=== PATIENT | female | born 1975 | race American Indian/Alaskan Native ===

== ENCOUNTER 2019-10-02 11:04 | Inpatient (IN) | payer OTHER ==
[~2019-10-02 11:04] MED LIST: ALBUTEROL SULF8.5 GM INH; ALLEGRA ALLERG180 MG PO; ALLER-CHLOR4 MG PO; ATENOLOL50 MG PO; AZITHROMYCIN250 MG PO; CLINDAMYCIN HC300 MG PO; LEVOTHROID50 MCG PO; LEVOTHYROXINE25 MCG PO; METFORMIN HCL750 MG PO; MOTRIN800 MG PO; NORCO 5-325 TA1 EACH PO; PRILOSEC20 MG PO; SUPERVITE EC CAP1 MG PO; TRAMADOL HCL50 MG PO
[2019-10-11] MEDS ORDERED: GLUCOPHAGE1000 MG PO ×2 (06:39→06:58)
[2019-10-11] MEDS ORDERED: LEVOTHYROXINE75 MCG PO (06:41)
[2019-10-11] MEDS ORDERED: LEVOXYL75 MCG PO (06:51)
[2019-10-11] MEDS ORDERED: METFORMIN HCL1000 MG PO (06:52)
[2019-10-11] MEDS ORDERED: KAPSPARGO SPRIN25 MG PO (06:54)
--- NOTE | 2019-10-11 18:32 | OR ---
[facility] [address], [place] [address] Signed DATE OF OPERATION: 10/11/2019 SURGEON: Roberta Griffin MD DATABASE MARKETING SPECIALIST: Dr. Eugene. PREOPERATIVE DIAGNOSES: Term , previous section, morbid obesity, chronic hypertension, gestational diabetes, metabolic syndrome. POSTOPERATIVE DIAGNOSES: Term , previous section, morbid obesity, chronic hypertension, gestational diabetes, metabolic syndrome, delivered. PROCEDURE: Repeat section, low segment transverse uterine incision. ANESTHESIA: Spinal followed by general. ESTIMATED BLOOD LOSS: 800 mL. DRAINS: Gibbs catheter as well as the KEILY dressing. INDICATIONS: The patient is a 44-year-old female, 11, para 1, SAB 9, who conceived this with IVF using her own egg. She did not have any genetic testing at all as this was refused by the patient. She is now 39 weeks. She has had a previous section and had a prolonged issue with poor wound healing, which lasted over six months. At the time of delivery, she delivered a little boy via lower segment transverse uterine incision with Apgars of 8 and 9 and weight of 9 pounds 1 ounce. He was delivered from the ROT position. The uterus, tubes, ovaries, and placenta appeared normal. Electronically Signed By: ROBERTA GRIFFIN MD 10/11/19 1832 PATIENT NAME: LOWELL CORTEZ OPERATIVE REPORT DATE OF : 79 REPORT #: [id number] PHYSICIAN: ROBERTA GRIFFIN MD PCP: ROBERTA GRIFFIN MD REPORT IS CONFIDENTIAL AND NOT TO BE RELEASED WITHOUT AUTHORIZATION [facility] [address] [place], [place] [address] Signed DESCRIPTION OF PROCEDURE: The patient was prepped and draped in the supine position. A Pfannenstiel skin incision was made at the previous scar. This was carried down using cautery. She did have multiple blood vessels in the subq which required extensive cauterization. Eventually, the fascia was reached. The knife was used to open the fascia further and the incision was extended laterally on each side. The inferior and superior fascial flaps were then created. There was quite a bit of scarring superiorly. The peritoneum was opened during this time. The incision was then extended superiorly and inferiorly. It was then also extended bluntly. Following this, the Oral retractor was placed. The uterine incision was made at the upper aspect of the peritoneal reflection. The baby was delivered with the above findings and handed off to the pediatric staff in attendance. The placenta was removed manually. Membranes were separately removed. The uterus was explored with a lap tape assuring no remaining fragments. There was initially quite a bit of atony which did resolve with IV Pitocin. The edges of the incision were identified and the uterus was closed in 2 layers using 0 Monocryl. The first layer was a running locking stitch. The 2nd was a vertical imbricating stitch. The abdomen was then irrigated and inspected and good hemostasis was noted. The retractor was removed. The peritoneum identified. ACell graft was then laid over the lower uterine segment to aid in healing. The peritoneum was then closed with a running suture of 3-0 Vicryl. Bleeding points over the muscle were controlled with cautery. The several [id number] sutures of 0 Vicryl required near the upper right aspect of the muscle and fascia to control bleeding. This area was then irrigated and inspected and appeared hemostatic. The muscles were not reapproximated. ACell powder as well as Katie was sprinkled over the muscles to aid further in healing and for hemostasis. The fascia was then closed from each angle to the midline with a running suture of 0 Vicryl. The subcu space was irrigated, inspected and bleeding points were controlled with cautery. The deep space was closed with interrupted sutures of 3-0 Vicryl. ACell powder as well as the Katie was sprinkled in the subcu space as well. The skin edges were reapproximated with interrupted sutures with 3-0 Vicryl in a more superficial way. Following this, roderick were placed to reapproximate the skin edges. Because of her prior difficulty, a KEILY dressing was then placed and the edges reinforced with OpSite. The device was turned on and there was no evidence of any leaking. Following this, the procedure was terminated. All sponge and needle counts were correct. She tolerated the procedure well and was taken to the recovery room in good condition. MD MEGAN Benz/TODDL Electronically Signed By: ROBERTA GRIFFIN MD 10/11/19 1832 PATIENT NAME: LOWELL CORTEZ OPERATIVE REPORT DATE OF : 79 REPORT #: [id number] PHYSICIAN: ROBERTA GRIFFIN MD PCP: ROBERTA GRIFFIN MD REPORT IS CONFIDENTIAL AND NOT TO BE RELEASED WITHOUT AUTHORIZATION [place] [address] Signed /[id number] cc: [facility] Dr. Eugene Copies: [facility] ~ Electronically Signed By: ROBERTA GRIFFIN MD 10/11/191831 PATIENT NAME: LOWELL CORTEZ OPERATIVE REPORT DATE OF : 79 REPORT #: [id number] PHYSICIAN: ROBERTA GRIFFIN MD PCP: ROBERTA GRIFFIN MD REPORT IS CONFIDENTIAL AND NOT TO BE RELEASED WITHOUT AUTHORIZATION
--- NOTE | 2019-10-12 09:07 | PR ---
[facility] [address] [facility] [place], [place] [address] Signed PP Progress Notes Datetime Report Generated by CPN: 10/12/2019 09:06 SUBJECTIVE: [id number] Pain: Within normal limits Nausea/Vomiting: Denies Flatus: No Vital Signs: [id number] Vital Signs: Reviewed; Within Normal Limits EXAM: [id number] Cardiovascular: Normal Respiratory: Normal Abdomen/Uterus: Abnormal Lochia: Normal Vulva/Perineum: Not Done Breasts: Not Done CVA Tenderness: Not Done Extremities: Normal Incision: Normal Progress: Not Applicable Exam Comments: Abdomen with active BS. Fundus firm, NT @ U. Dressing completely dry H/H 9.6/28.5, WBC 6.9, plat 156k IMPRESSION/PLAN/PROCEDURES: [id number] Impression: Normal progression Other Plans: Ambulate, sponge bath, increase diet, restart meds Progress Notes: Doing well overall. Signing Physician: Roberta Griffin MD Copies: ~ *Electronically Signed* 10/12/19905 ROBERTA GRIFFIN MD PATIENT NAME: LOWELL CORTEZ PROGRESS NOTE DATE OF : 79 PHYSICIAN: ROBERTA GRIFFIN MD RPT #: [id number] REPORT IS CONFIDENTIAL AND NOT TO BE RELEASED WITHOUT AUTHORIZATION
--- NOTE | 2019-10-13 08:19 | PR ---
[facility] [address] [facility] [place], [place] [address] Signed PP Progress Notes Datetime Report Generated by CPN: 10/13/2019 08:19 SUBJECTIVE: [id number] Pain: Within normal limits Nausea/Vomiting: Denies Flatus: Yes Bowel Movement: No Vital Signs: [id number] Vital Signs: Reviewed Notable Details: mild HTN EXAM: [id number] Cardiovascular: Normal Respiratory: Normal Abdomen/Uterus: Abnormal Lochia: Normal Vulva/Perineum: Not Done Breasts: Not Done CVA Tenderness: Not Done Extremities: Abnormal Incision: Normal Progress: Not Applicable Exam Comments: Abdomen with active BS. Fundus firm, NT @ U. 1+ LE edema, no calf tenderness Dressing dry IMPRESSION/PLAN/PROCEDURES: [id number] Impression: Normal progression Plan: Continue present management Other Plans: increase ambulation Procedures: None Progress Notes: Doing well overall. Will continue present management. Signing Physician: Roberta Griffin MD Copies: ~ *Electronically Signed* 10/13/19 0819 ROBERTA GRIFFIN MD PATIENT NAME: LOWELL CORTEZ PROGRESS NOTE DATE OF : 79 PHYSICIAN: ROBERTA GRIFFIN MD RPT #: [id number] REPORT IS CONFIDENTIAL AND NOT TO BE RELEASED WITHOUT AUTHORIZATION
--- NOTE | 2019-10-14 08:11 | PR ---
[facility] [address] [facility] [place], [place] [address] Signed PP Progress Notes Datetime Report Generated by CPN: 10/14/2019 08:11 SUBJECTIVE: [id number] Pain: Within normal limits Nausea/Vomiting: Denies Flatus: Yes Bowel Movement: Yes Vital Signs: [id number] Vital Signs: Reviewed Notable Details: labile with intermittent very high BPs EXAM: [id number] Cardiovascular: Not Done Respiratory: Not Done Abdomen/Uterus: Abnormal Lochia: Normal Vulva/Perineum: Not Done Breasts: Not Done CVA Tenderness: Not Done Extremities: Normal Incision: Normal Progress: Not Applicable Exam Comments: Abdomen with active BS. Fundus firm, NT @ U. Dressing dry. IMPRESSION/PLAN/PROCEDURES: [id number] Impression: Normal progression; Induced Hypertension Plan: Discharge Other Plans: Add Procardia Procedures: None Progress Notes: Doing well though BPs have been labile. Will add Procardia now. Signing Physician: Roberta Griffin MD Copies: ~ *Electronically Signed* 10/14/19 0811 ROBERTA GRIFFIN MD PATIENT NAME: LOWELL CORTEZ PROGRESS NOTE DATE OF : 79 PHYSICIAN: ROBERTA GRIFFIN MD RPT #: [id number] REPORT IS CONFIDENTIAL AND NOT TO BE RELEASED WITHOUT AUTHORIZATION
== END 2019-10-14 10:30 | disposition home or self-care (01) | DRG 787 ==
LOC: FBC 10-11 04:50
PROVIDERS: ADMIT Obstetrics & Gynecology
PROC: 10D00Z1 Extraction of Products of Conception, Low, Open Approach (ICD-10-PCS; principal; 2019-10-11 06:45)
DX: O34.211 Maternal care for low transverse scar from previous cesarean delivery (principal); O10.92 Unspecified pre-existing hypertension complicating childbirth; N85.8 Other specified noninflammatory disorders of uterus; Z3A.39 39 weeks gestation of pregnancy; Z37.0 Single live birth; O99.214 Obesity complicating childbirth; E66.01 Morbid (severe) obesity due to excess calories; O75.89 Other specified complications of labor and delivery; O32.2XX0 Maternal care for transverse and oblique lie, not applicable or unspecified; O99.284 Endocrine, nutritional and metabolic diseases complicating childbirth; E88.81 Metabolic syndrome and other insulin resistance; E28.2 Polycystic ovarian syndrome; O99.52 Diseases of the respiratory system complicating childbirth; J45.909 Unspecified asthma, uncomplicated; O24.425 Gestational diabetes mellitus in childbirth, controlled by oral hypoglycemic drugs; E03.9 Hypothyroidism, unspecified; Z79.84 Long term (current) use of oral hypoglycemic drugs; Z79.82 Long term (current) use of aspirin; Z79.51 Long term (current) use of inhaled steroids; Z79.899 Other long term (current) drug therapy; Z88.0 Allergy status to penicillin; Z88.8 Allergy status to other drugs, medicaments and biological substances
CPT/HCPCS: 01961; 36415; 85027; A9270; J0690; J1170; J1644; J2270; J2274; J2405; J2590; J2704; J3010; J7121

== ENCOUNTER 2019-10-18 19:58 | Emergency (ER) | payer OTHER ==
[~2019-10-18] VITALS: Ht 175.3 cm; Wt 147.0 kg
--- OUTSIDE RECORDS SUMMARY | ~2019-10-18 | XMS | Clinical Summary ---
Demographics + + + | Address | [address] | | | [place] [address] | + + + | Home Phone | | + + + | Preferred Language | Unknown | + + + | Marital Status | Unknown | + + + | Baptism Affiliation | Unknown | + + + | Race | Unknown | + + + | Ethnic Group | Unknown | + + + Author + + + | Author | [facility] (Historical as of | | | 02-09-19) | + + + | Organization | [facility] (Historical as of | | | 02-09-19) | + + + | Address | Unknown | + + + | Phone | Unavailable | + + + Care Team Providers + +------+ + | Care Blueprint Maker Name | Role | Phone | + +------+ + PP | Unavailable | + +------+ + Allergies Not on File Current Medications Not on file Active Problems Not on file Social History + +-------+ +--------+------+ | Tobacco Use | Types | Packs/Day | Years | Date | | | | | Used | | + +-------+ +--------+------+ | Never Assessed | | | | | + +-------+ +--------+------+ + + + | Sex Assigned at | Date Recorded | | | | + + + | Not on file | | + + + Plan of Treatment + + + + + | Health Maintenance | Due Date | Last Done | Comments | + + + + + | Vaccine: | | | | | Dtap/Tdap/Td (1 - | 6 | | | | Tdap) | | | | + + + + + | Cervical Cancer | | | | | Screening (Pap) | 7 | | | + + + + + | Vaccine: Influenza | | | | | (Season Ended) | 0 | | | + + + + + Results Not on filefrom Last 3 Months Insurance + +--------+ +------+-------+---------+ | Payer | Benefi | Subscriber | Type | Phone | Address | | | t Plan | ID | | | | | | / | | | | | | | Group | | | | | + +--------+ +------+-------+---------+ | /[employer] | YELLOW | [id number] | | | | | PLANS | [place] | | | | | + +--------+ +------+-------+---------+ + +--------+ +--------+ + + | Guarantor Name | Accoun | Relation to | Date | Phone | Billing Address | | | t Type | Patient | of | | | | | | | | | | + +--------+ +--------+ + + | LOWELL CORTEZ | Person | Self [birth year] Home: | [address] | | | [place] | | 1974 | [phone] | [place] | | | [place] | | [phone] | + +--------+ +--------+ + +"
--- OUTSIDE RECORDS SUMMARY | ~2019-10-18 | XMS | Encounter Summary ---
Demographics + + + | Address | [address] | | | [place] [address] | + + + | Home Phone | | + + + | Preferred Language | Unknown | + + + | Marital Status | Unknown | + + + | Hoahaoism Affiliation | Unknown | + + + | Race | Unknown | + + + | Ethnic Group | Unknown | + + + Author + + + | Author | [facility] | | | and [place] | + + + | Organization | [facility] | | | and [place] | + + + | Address | Unknown | + + + | Phone | Unavailable | + + + Care Team Providers + +------+ + | Care Electric Meter Repairer Apprentice Name | Role | Phone | + +------+ + PCP | Unavailable | + +------+ + Encounter Details +--------+ + + + + | Date | Type | Department | Care Team | Description | +--------+ + + + + | 01/02/ | Hospital | [facility] | | | | 1996 | Encounter | MED CTR SLEEP | | | | | | CENTER [address] | | | | | | [place] | | | | | | [address] | | | | | | [phone] | | | +--------+ + + + + Social History + +-------+ +--------+------+ | Tobacco [...] on file | | + + + + + + + | Job Start Date | Occupation | Industry | + + + + | Not on file | Not on file | Not on file | + + + + + + + + | Travel History | Travel Start | Travel End | + + + + + + | No recent travel history available. | + + documented as of this encounter Plan of Treatment Not on filedocumented as of this encounter Visit Diagnoses Not on filedocumented in this encounter"
--- OUTSIDE RECORDS SUMMARY | ~2019-10-18 | XMS | Encounter Summary ---
Demographics + + + | Address | [address] | | | [place] [address] | + + + | Home Phone | | + + + | Preferred Language | Unknown | + + + | Marital Status | Unmarried Domestic Partner | + + + | Holiness Affiliation | Unknown | + + + | Race | or | + + + | Ethnic Group | Not or | + + + Author + + + | Author | [facility] | + + + | Organization | [facility] | + + + | Address | Unknown | + + + | Phone | Unavailable | + + + Support + + +---------+ + | Name | Relationship | Address | Phone | + + +---------+ + | Van Zarina | ECON | Unknown | | + + +---------+ + Care Team Providers + +------+ + | Care Ergonomics Technician Name | Role | Phone | + +------+ + | Hood Sauceda MD | PCP | | + +------+ + Reason for Visit + + + | Reason | Comments | + + + | Lab findings, | [facility] | | teaching, guidance, | | | and counseling | | + + + Encounter Details +--------+ + + + + | Date | Type | Department | Care Team | Description | +--------+ + + + + | 01/28/ | Telephone | [facility] | Dee Dee Martinez MD | Lab findings, | | 2015 | | Fertility | [address] [place] | teaching, guidance, | | | | [facility]ants at [facility] | Mellisa Lynch [place], | and counseling ([place]) | | | | [address] | [place] [address] | | | | | [facility] | [phone] | | | | | and Healing, | | | | | | [facility] | | | | | | [place], [place] | | | | | | [address] | | | | | | [phone] | | | +--------+ + + + + Social History + +-------+ +--------+------+ | Tobacco Use | Types | Packs/Day | Years | Date | | | | | Used | | + +-------+ +--------+------+ | Never Smoker | | | | | + +-------+ +--------+------+ + + +---------+ + | Alcohol Use | Drinks/Week | oz/Week | Comments | + + +---------+ + | Not Asked | | | | + + +---------+ + + + + | Sex Assigned at [...]
--- OUTSIDE RECORDS SUMMARY | ~2019-10-18 | XMS | Encounter Summary ---
Demographics + + + | Address | [address] | | | [place] [address] | + + + | Home Phone | | + + + | Preferred Language | Unknown | + + + | Marital Status | Unknown | + + + | Hinduism Affiliation | Unknown | + + + | Race | Unknown | + + + | Ethnic Group | Unknown | + + + Author + + + | Author | [facility] | | | and [place] | + + + | Organization | [facility] | | | and [place] | + + + | Address | Unknown | + + + | Phone | Unavailable | + + + Care Team Providers + +------+ + | Care Animation Director Name | Role | Phone | + +------+ + PCP | Unavailable | + +------+ + Encounter Details +--------+ + + + + | Date | Type | Department | Care Team | Description | +--------+ + + + + | 02/16/ | Hospital | [facility] | | | | 2006 | Encounter | MED CTR EMERGENCY | | | | | | CENTER [address] | | | | | | [place] | | | | | | [address] | | | | | | [phone] | | | +--------+ + + + [...]
--- OUTSIDE RECORDS SUMMARY | ~2019-10-18 | XMS | Encounter Summary ---
Demographics + + + | Address | [address] | | | [place] [address] | + + + | Home Phone | | + + + | Preferred Language | Unknown | + + + | Marital Status | Unknown | + + + | Roman Catholic Affiliation | Unknown | + + + | Race | Unknown | + + + | Ethnic Group | Unknown | + + + Author + + + | Author | [facility] | | | and [place] | + + + | Organization | [facility] | | | and [place] | + + + | Address | Unknown | + + + | Phone | Unavailable | + + + Care Team Providers + +------+ + | Care Nail Technician Teacher Name | Role | Phone | + +------+ + PCP | Unavailable | + +------+ + Encounter Details +--------+ + + + + | Date | Type | Department | Care Team | Description | +--------+ + + + + | 01/11/ | Hospital | [facility] | | | | 2016 | Encounter | [facility]ICAL ADMINISTRATIVE TECHNIC[facility] Urgent [facility] | | | | | | [address] | | | | | | [address] | | | | | | [place] | | | | | | [address] | | | | | | [phone] | | | +--------+ + + + [...]
--- OUTSIDE RECORDS SUMMARY | ~2019-10-18 | XMS | Encounter Summary ---
Demographics + + + | Address | [address] | | | [place] [address] | + + + | Home Phone | | + + + | Preferred Language | Unknown | + + + | Marital Status | Unknown | + + + | Scientologist Affiliation | Unknown | + + + | Race | Unknown | + + + | Ethnic Group | Unknown | + + + Author + + + | Author | [facility] | | | and [place] | + + + | Organization | [facility] | | | and [place] | + + + | Address | Unknown | + + + | Phone | Unavailable | + + + Care Team Providers + +------+ + | Care Supervisor Cutting Department Name | Role | Phone | + +------+ + PCP | Unavailable | + +------+ + Encounter Details +--------+ + + + + | Date | Type | Department | Care Team | Description | +--------+ + + + + | 02/16/ | Hospital | [facility] | | | | 2006 | Encounter | MED CTR EMERGENCY | | | | | | CENTER [address] | | | | | | [place] | | | | | | [address] | | | | | | [phone] | | | +--------+ + + + [...]
--- OUTSIDE RECORDS SUMMARY | ~2019-10-18 | XMS | Encounter Summary ---
Demographics + + + | Address | [address] | | | [place] [address] | + + + | Home Phone | | + + + | Preferred Language | Unknown | + + + | Marital Status | Unmarried Domestic Partner | + + + | Temple Affiliation | Unknown | + + + | Race | or | + + + | Ethnic Group | Not or | + + + Author + + + | Author | [facility] | + + + | Organization | [facility] | + + + | Address | Unknown | + + + | Phone | Unavailable | + + + Support + + +---------+ + | Name | Relationship | Address | Phone | + + +---------+ + | Van Zarina | ECON | Unknown | | + + +---------+ + Care Team Providers + +------+ + | Care Clinique Counter Manager Name | Role | Phone | + +------+ + PCP | Unavailable | + +------+ + Encounter Details +--------+ + + + + | Date | Type | Department | Care Team | Description | +--------+ + + + + | 03/02/ | Documentati | Neurophysiology | Jeferson Walton MD | | | 2006 | on-ECX | [facility] [address] | [address] | | | | | [address] | [place], [place] | | | | | [employer] | [address] | | | | | [address] | [phone] | | | | | [place], [place] | | | | | | [address] | | | | | | [phone] | | | +--------+ + + + [...] Not on filedocumented as of this encounter Procedures + +--------+ + + + | Procedure Name | Priori | Date/Time | Associated Diagnosis | Comments | | | ty | | | | + +--------+ + + + | EEG ROUTINE | Routin | 03/02/2007 | | Results for this | | | e | | | procedure are in the | | | | | | results section. | + +--------+ + + + documented in this encounter Results EEG ROUTINE (03/02/2007) + + | Specimen | + + | | + + + + + | Narrative | Performed At | + + + | Patient Name: Leatha Mcdonald Date of : 1975 | [facility] | | Date of Test: 03/02/2007 | CARE TESTS | | Routine EEG Detail: With the patient awake, the posterior rhythm | | | contained much moderate amplitude symmetric 12 Hz activity. During | | | stage 1 sleep, there was attenuation of the posterior rhythm and some | | | generalized, symmetric slowing. Hyperventilation and photic | | | stimulation produced no significant change in the EEG. There was no | | | focal abnormality or abnormal paroxysmal activity. Impression: | | | Normal EEG with the patient awake and in stage 1 sleep. Jorgito Holden | | | Simone Sandoval Professor, Department of Neurology Clinical | | | Neurophysiology Department | | + + + + + + + + | Performing | Address | City/State/Zipcode | Phone Number | | Organization | | | | + + + + + | [facility] | [address] | [place], [place] | | | [facility], POINT OF CARE | [address] | [address] | | | TESTS | | | | + + + + + | [facility] | [address] | [place], [place] | | | TESTS | [address] | [address] | | + + + + + documented in this encounter Visit Diagnoses Not on filedocumented in this encounter"
--- OUTSIDE RECORDS SUMMARY | ~2019-10-18 | XMS | Encounter Summary ---
Demographics + + + | Address | [address] | | | [place] [address] | + + + | Home Phone | | + + + | Preferred Language | Unknown | + + + | Marital Status | Unknown | + + + | Islam Affiliation | Unknown | + + + | Race | Unknown | + + + | Ethnic Group | Unknown | + + + Author + + + | Author | [facility] | | | and [place] | + + + | Organization | [facility] | | | and [place] | + + + | Address | Unknown | + + + | Phone | Unavailable | + + + Care Team Providers + +------+ + | Care Industrial Design Intern Name | Role | Phone | + +------+ + PCP | Unavailable | + +------+ + Encounter Details +--------+ + + + + | Date | Type | Department | Care Team | Description | +--------+ + + + + | 01/06/ | Hospital | [facility] | | | | 2004 | Encounter | MED CTR XRAY [address] | | | | | [place] [address] | | | | | | [place] [address] | | | | | | [phone] | | | +--------+ + + + [...]
--- OUTSIDE RECORDS SUMMARY | ~2019-10-18 | XMS | Encounter Summary ---
Demographics + + + | Address | [address] | | | [place] [address] | + + + | Home Phone | | + + + | Preferred Language | Unknown | + + + | Marital Status | Unknown | + + + | Methodist Affiliation | Unknown | + + + | Race | Unknown | + + + | Ethnic Group | Unknown | + + + Author + + + | Author | [facility] | | | and [place] | + + + | Organization | [facility] | | | and [place] | + + + | Address | Unknown | + + + | Phone | Unavailable | + + + Care Team Providers + +------+ + | Care Cargo And Ramp Services Manager Name | Role | Phone | + +------+ + PCP | Unavailable | + +------+ + Encounter Details +--------+ + + + + | Date | Type | Department | Care Team | Description | +--------+ + + + + | 04/22/ | Hospital | [facility] | | | | 2007 | Encounter | MED CTR LABORATORY | | | | | | [address] | | | | | | [place] | | | | | | [address] | | | | | | [phone] | | | +--------+ + + + [...]
--- OUTSIDE RECORDS SUMMARY | ~2019-10-18 | XMS | Clinical Summary ---
Demographics + + + | Address | [address] | | | [place] [address] | + + + | Home Phone | | + + + | Preferred Language | Unknown | + + + | Marital Status | Unknown | + + + | Advent Affiliation | Unknown | + + + | Race | Unknown | + + + | Ethnic Group | Unknown | + + + Author + + + | Author | [facility] | | | and [facility] | + + + | Organization | [facility] | | | and [place] | + + + | Address | Unknown | + + + | Phone | Unavailable | + + + Care Team Providers + +------+ + | Care Field Handyman Name | Role | Phone | + +------+ + PCP | Unavailable | + +------+ + Allergies Not on File Medications Not on file Active Problems Not [...] recent travel history available. | + + Last Filed Vital Signs Not on file Plan of Treatment + + + + + | Health Maintenance | Due Date | Last Done | Comments | + + + + + | Vaccine: | | | | | Dtap/Tdap/Td (1 - | 8 | | | | Tdap) | | | | + + + + + | Cervical Cancer | | | | | Screening (Pap) | 7 | | | + + + + + | Vaccine: Influenza | | | | | (Season Ended) | 0 | | | + + + + + Results Not on filefrom Last 3 Months"
--- OUTSIDE RECORDS SUMMARY | ~2019-10-18 | XMS | Encounter Summary ---
Demographics + + + | Address | [address] | | | [place] [address] | + + + | Home Phone | | + + + | Preferred Language | Unknown | + + + | Marital Status | Unknown | + + + | Hoahaoism Affiliation | Unknown | + + + | Race | Unknown | + + + | Ethnic Group | Unknown | + + + Author + + + | Author | [facility] | | | and [place] | + + + | Organization | [facility] | | | and [place] | + + + | Address | Unknown | + + + | Phone | Unavailable | + + + Care Team Providers + +------+ + | Care Draw Bench Operator Helper Name | Role | Phone | + +------+ + PCP | Unavailable | + +------+ + Encounter Details +--------+ + + + + | Date | Type | Department | Care Team | Description | +--------+ + + + + | 08/30/ | Hospital | [facility] | Chris Slade | | | 2009 | Encounter | MED CTR SLEEP | MD [address] | | | | | [place] [address] | [facility] | | | | | [place] | [place] [address] | | | | | [address] | [phone] | | | | | [phone] | | | +--------+ + + + [...]
--- OUTSIDE RECORDS SUMMARY | ~2019-10-18 | XMS | Encounter Summary ---
Demographics + + + | Address | [address] | | | [place] [address] | + + + | Home Phone | | + + + | Preferred Language | Unknown | + + + | Marital Status | Unknown | + + + | Voodoo Affiliation | Unknown | + + + | Race | Unknown | + + + | Ethnic Group | Unknown | + + + Author + + + | Author | [facility] | | | and [place] | + + + | Organization | [facility] | | | and [place] | + + + | Address | Unknown | + + + | Phone | Unavailable | + + + Care Team Providers + +------+ + | Care Therapeutic Case Manager Name | Role | Phone | + +------+ + PCP | Unavailable | + +------+ + Encounter Details +--------+ + + + + | Date | Type | Department | Care Team | Description | +--------+ + + + + | 10/17/ | Hospital | [facility] | | | | 1996 | Encounter | MED CTR GENERIC OP | | | | | | CONV DEPT [address] | | | | | | [place], | | | | | | [place] [address] | | | | | | [phone] | | | +--------+ + + + [...]
--- OUTSIDE RECORDS SUMMARY | ~2019-10-18 | XMS | Encounter Summary ---
Demographics + + + | Address | [address] | | | [place] [address] | + + + | Home Phone | | + + + | Preferred Language | Unknown | + + + | Marital Status | Unmarried Domestic Partner | + + + | Moravian Affiliation | Unknown | + + + | Race | or | + + + | Ethnic Group | Not or | + + + Author + + + | Author | [facility] | + + + | Organization | [facility] | + + + | Address | Unknown | + + + | Phone | Unavailable | + + + Support + + +---------+ + | Name | Relationship | Address | Phone | + + +---------+ + | Van Zarina | ECON | Unknown | | + + +---------+ + Care Team Providers + +------+ + | Care Resistor Testing Machine Operator Name | Role | Phone | + +------+ + | Hood Sauceda MD | PCP | | + +------+ + Reason for Visit + + + | Reason | Comments | + + + | Lab findings, | | | teaching, guidance, | | | and counseling | | + + + Encounter Details +--------+ + + + + | Date | Type | Department | Care Team | Description | +--------+ + + + + | 06/04/ | Telephone | [place] | Dee Dee Martinez MD | Lab findings, | | 2015 | | Fertility | [address] | teaching, guidance, | | | | Consultants at [facility] | [address], | and counseling | | | | [address] | [place] [address] | | | | | [facility] | [phone] | | | | | and Healing, | | | | | | | | | | | | [place], [place] | | | | | | [address] | | | | | | [phone] | | | +--------+ + + + [...]
--- OUTSIDE RECORDS SUMMARY | ~2019-10-18 | XMS | Encounter Summary ---
Demographics + + + | Address | [address] | | | [place] [address] | + + + | Home Phone | | + + + | Preferred Language | Unknown | + + + | Marital Status | Unknown | + + + | Jain Affiliation | Unknown | + + + | Race | Unknown | + + + | Ethnic Group | Unknown | + + + Author + + + | Author | [facility] | | | and [place] | + + + | Organization | [facility] | | | and [place] | + + + | Address | Unknown | + + + | Phone | Unavailable | + + + Care Team Providers + +------+ + | Care Paralegal Assistant Name | Role | Phone | + +------+ + PCP | Unavailable | + +------+ + Encounter Details +--------+ + + + + | Date | Type | Department | Care Team | Description | +--------+ + + + + | 06/03/ | Hospital | [facility] | Sukhi Fermin | | | 2008 | Encounter | MED CTR LABORATORY | DO [address] | | | | | [address] | [facility] | | | | | [place] | [place] [address] | | | | | [address] | [phone] | | | | | [phone] | | | +--------+ + + + [...]
--- OUTSIDE RECORDS SUMMARY | ~2019-10-18 | XMS | Clinical Summary ---
Demographics + + + | Address | [address] | | | [place] [address] | + + + | Home Phone | | + + + | Preferred Language | Unknown | + + + | Marital Status | Unknown | + + + | Sabianist Affiliation | Unknown | + + + | Race | Unknown | + + + | Ethnic Group | Unknown | + + + Author + + + | Author | [facility] | | | [facility] | + + + | Organization | [facility] | | | and [place] | + + + | Address | Unknown | + + + | Phone | Unavailable | + + + Care Team Providers + +------+ + | Care Instrument Technician Helper Name | Role | Phone | [...]
--- OUTSIDE RECORDS SUMMARY | ~2019-10-18 | XMS | Clinical Summary ---
Demographics + + + | Address | [address] | | | [place] [address] | + + + | Home Phone | | + + + | Preferred Language | Unknown | + + + | Marital Status | Unknown | + + + | Jainism Affiliation | Unknown | + + + | Race | Unknown | + + + | Ethnic Group | Unknown | + + + Author + + + | Author | [facility] (Historical as of | | | 02-09-19) | + + + | Organization | [facility] (Historical as of | | | 02-09-19) | + + + | Address | Unknown | + + + | Phone | Unavailable | + + + Care Team Providers + +------+ + | Care Ladle Repairer Name | Role | Phone | + [...] | | | + +--------+ +------+-------+---------+ | /[facility] | YELLOW | [id number] | | | | | PLANS | [...] | Self | [birth year] Home: | [address] | | | [place] | | 1974 | [phone] | [place] | | | nando | | | [phone] | [phone] | + +--------+ +--------+ + +"
--- OUTSIDE RECORDS SUMMARY | ~2019-10-18 | XMS | Encounter Summary ---
Demographics + + + | Address | [address] | | | [place] [address] | + + + | Home Phone | | + + + | Preferred Language | Unknown | + + + | Marital Status | Unknown | + + + | Presybeterian Affiliation | Unknown | + + + | Race | Unknown | + + + | Ethnic Group | Unknown | + + + Author + + + | Author | [facility] | | | and [place] | + + + | Organization | [facility] | | | and [place] | + + + | Address | Unknown | + + + | Phone | Unavailable | + + + Care Team Providers + +------+ + | Care Baby Formula Mixer Name | Role | Phone | + +------+ + PCP | Unavailable | + +------+ + Encounter Details +--------+ + + + + | Date | Type | Department | Care Team | Description | +--------+ + + + + | 04/22/ | Hospital | [facility] | | | | 2007 | Encounter | MED CTR LABORATORY | | | | | | [address] | | | | | | [place] | | | | | | [address] | | | | | | [phone] | | | +--------+ + + + [...]
--- OUTSIDE RECORDS SUMMARY | ~2019-10-18 | XMS | Encounter Summary ---
Demographics + + + | Address | [address] | | | [place] [address] | + + + | Home Phone | | + + + | Preferred Language | Unknown | + + + | Marital Status | Unmarried Domestic Partner | + + + | Rastafarian Affiliation | Unknown | + + + | Race | or | + + + | Ethnic Group | Not or | + + + Author + + + | Author | [facility] | + + + | Organization | [facility] | + + + | Address | Unknown | + + + | Phone | Unavailable | + + + Support + + +---------+ + | Name | Relationship | Address | Phone | + + +---------+ + | Van Zarina | ECON | Unknown | | + + +---------+ + Care Team Providers + +------+ + | Care Tank Refinisher Name | Role | Phone | + +------+ + | Hood Sauceda MD | PCP | | + +------+ + Encounter Details +--------+ + + + + | Date | Type | Department | Care Team | Description | +--------+ + + + + | 01/16/ | [facility] | [place] | Kellee Hamlin, RN | RE: Lab order | | 2014 | Encounter | Fertility | [address] | | | | | Consultants at [facility] | [address] [place], | | | | | [address] | [place] [address] | | | | | [facility] | | | | | | and Healing, | | | | | | Building | | | | | | Floor [place], [place] | | | | | | [address] | | | | | | [phone] | | | +--------+ + + + [...]
--- OUTSIDE RECORDS SUMMARY | ~2019-10-18 | XMS | Encounter Summary ---
Demographics + + + | Address | [address] | | | [place] [address] | + + + | Home Phone | | + + + | Preferred Language | Unknown | + + + | Marital Status | Unmarried Domestic Partner | + + + | Lutheran Affiliation | Unknown | + + + | Race | or | + + + | Ethnic Group | Not or | + + + Author + + + | Author | [facility] | + + + | Organization | [facility] | + + + | Address | Unknown | + + + | Phone | Unavailable | + + + Support + + +---------+ + | Name | Relationship | Address | Phone | + + +---------+ + | Van Zarina | ECON | Unknown | | + + +---------+ + Care Team Providers + +------+ + | Care Career And Technology Education Teacher Name | Role | Phone | + +------+ + | Hood Sauceda MD | PCP | | + +------+ + Encounter Details +--------+ + + + + | Date | Type | Department | Care Team | Description | +--------+ + + + + | 01/27/ | Document-Sc | UNKNOWN DEPARTMENT | Unknown . | | | 2015 | anned | [address] | | | | | | [address] | | | | | | [place], [place] | | | | | | [address] | | | +--------+ + + + [...]
--- OUTSIDE RECORDS SUMMARY | ~2019-10-18 | XMS | Encounter Summary ---
Demographics + + + | Address | [address] | | | [place] [address] | + + + | Home Phone | | + + + | Preferred Language | Unknown | + + + | Marital Status | Unmarried Domestic Partner | + + + | Restorationism Affiliation | Unknown | + + + | Race | or | + + + | Ethnic Group | Not or | + + + Author + + + | Author | [facility] | + + + | Organization | [facility] | + + + | Address | Unknown | + + + | Phone | Unavailable | + + + Support + + +---------+ + | Name | Relationship | Address | Phone | + + +---------+ + | Van Zarina | ECON | Unknown | | + + +---------+ + Care Team Providers + +------+ + | Care Matrix Bath Attendant Name | Role | Phone | + [...] Rd | | | | | | [place], [place] | | | | | | [address] | | | +--------+ + + + [...]
--- OUTSIDE RECORDS SUMMARY | ~2019-10-18 | XMS | Encounter Summary ---
Demographics + + + | Address | [address] | | | [place] [address] | + + + | Home Phone | | + + + | Preferred Language | Unknown | + + + | Marital Status | Unmarried Domestic Partner | + + + | Church Affiliation | Unknown | + + + | Race | or | + + + | Ethnic Group | Not or | + + + Author + + + | Author | [facility] | + + + | Organization | [facility] | + + + | Address | Unknown | + + + | Phone | Unavailable | + + + Support + + +---------+ + | Name | Relationship | Address | Phone | + + +---------+ + | Van Zarina | ECON | Unknown | | + + +---------+ + Care Team Providers + +------+ + | Care Supervisor Doping Name | Role | Phone | + +------+ + | Hood Sauceda MD | PCP | | + +------+ + Reason for Referral Consultation (Routine) +--------+--------+ + + + + | Status | Reason | Specialty | Diagnoses / | Referred By | Referred To | | | | | Procedures | Contact | Contact | +--------+--------+ + + + + | Closed | | | Diagnoses | Dee Dee Martinez | | | | | | Encounter | MD [address] | | | | | | for | [address] | | | | | | consultation | [address] | | | | | | | Rd | | | | | | Pre-concepti | [place], [place] | | | | | | on | [address] | | | | | | counseling | Phone: | | | | | | Procedures | [phone] | | | | | | CONSULT TO | Fax: | | | | | | PERINATOLOGY | [phone] | | +--------+--------+ + + + + Reason for Visit +--------+ + | Reason | Comments | +--------+ + | Menses | | +--------+ + Encounter Details +--------+ + + + + | Date | Type | Department | Care Team | Description | +--------+ + + + + | 10/22/ | Telephone | [facility] | Dee Dee Martinez MD | [place] | | 2016 | | Fertility | [address] | | | | | Consultants at [facility] | [address] [place], | | | | | [address] | [place] [address] | | | | | [facility] | [phone] | | | | | and Healing, | | | | | | | | | | | | Floor [place], [place] | | | | | | [address] | | | | | | [phone] | | | +--------+ + + + [...] filedocumented as of this encounter Visit Diagnoses + + | Diagnosis | + + | Encounter for consultation - Primary Unspecified reason for consultation | + + documented in this encounter"
--- OUTSIDE RECORDS SUMMARY | ~2019-10-18 | XMS | Encounter Summary ---
Demographics + + + | Address | [address] | | | [place] [address] | + + + | Home Phone | | + + + | Preferred Language | Unknown | + + + | Marital Status | Unknown | + + + | Holiness Affiliation | Unknown | + + + | Race | Unknown | + + + | Ethnic Group | Unknown | + + + Author + + + | Author | [facility] | | | and [place] | + + + | Organization | [facility] | | | and [place] | + + + | Address | Unknown | + + + | Phone | Unavailable | + + + Care Team Providers + +------+ + | Care Social And Political Studies Professor Name | Role | Phone | + +------+ + PCP | Unavailable | + +------+ + Encounter Details +--------+ + + + + | Date | Type | Department | Care Team | Description | +--------+ + + + + | 04/09/ | Hospital | [facility] | | | | 2008 | Encounter | MED CTR GENERIC OP | | | | | | CONV DEPT [address] | | | | | | [place], | | | | | | [place] [address] | | | | | | [phone] | | | +--------+ + + + [...]
--- OUTSIDE RECORDS SUMMARY | ~2019-10-18 | XMS | Encounter Summary ---
Demographics + + + | Address | [address] | | | [place] [address] | + + + | Home Phone | | + + + | Preferred Language | Unknown | + + + | Marital Status | Unknown | + + + | Congregational Affiliation | Unknown | + + + | Race | Unknown | + + + | Ethnic Group | Unknown | + + + Author + + + | Author | [facility] | | | and [place] | + + + | Organization | [facility] | | | and [place] | + + + | Address | Unknown | + + + | Phone | Unavailable | + + + Care Team Providers + +------+ + | Care Rotary Planer Set Up Operator Name | Role | Phone | + +------+ + PCP | Unavailable | + +------+ + Encounter Details +--------+ + + + + | Date | Type | Department | Care Team | Description | +--------+ + + + + | 01/04/ | Hospital | [facility] | | | | 2006 | Encounter | MED CTR GENERIC OP | | | | | | CONV DEPT [address] | | | | | | [place], | | | | | | [place] [address] | | | | | | [phone] | | | +--------+ + + + [...]
--- OUTSIDE RECORDS SUMMARY | ~2019-10-18 | XMS | Encounter Summary ---
Demographics + + + | Address | [address] | | | [place] [address] | + + + | Home Phone | | + + + | Preferred Language | Unknown | + + + | Marital Status | Unmarried Domestic Partner | + + + | Synagogue Affiliation | Unknown | + + + | Race | or | + + + | Ethnic Group | Not or | + + + Author + + + | Author | [facility] | + + + | Organization | [facility] | + + + | Address | Unknown | + + + | Phone | Unavailable | + + + Support + + +---------+ + | Name | Relationship | Address | Phone | + + +---------+ + | Van Zarina | ECON | Unknown | | + + +---------+ + Care Team Providers + +------+ + | Care Neck Fitter Name | Role | Phone | + +------+ + PCP | Unavailable | + +------+ + Encounter Details +--------+ + + + + | Date | Type | Department | Care Team | Description | +--------+ + + + + | 03/06/ | Documentati | Neurology at | Jorgito Sandoval MD | | | 2006 | on | [facility] | [address] | | | | | [address] | [place], [place] | | | | | [address] [facility] | [address] | | | | | Health and Healing, | [phone] | | | | | [facility] | | | | | | floor [place], [place] | | | | | | [address] | | | | | | [phone] | | | +--------+ + + + [...]
--- OUTSIDE RECORDS SUMMARY | ~2019-10-18 | XMS | Encounter Summary ---
Demographics + + + | Address | [address] | | | [place] [address] | + + + | Home Phone | | + + + | Preferred Language | Unknown | + + + | Marital Status | Unknown | + + + | Zoroastrian Affiliation | Unknown | + + + | Race | Unknown | + + + | Ethnic Group | Unknown | + + + Author + + + | Author | [facility] | | | and [place] | + + + | Organization | [facility] | | | and [place] | + + + | Address | Unknown | + + + | Phone | Unavailable | + + + Care Team Providers + +------+ + | Care An/Ssn 2 4 Operator Name | Role | Phone | + +------+ + PCP | Unavailable | + +------+ + Encounter Details +--------+ + + + + | Date | Type | Department | Care Team | Description | +--------+ + + + + | 08/30/ | Hospital | [facility] | Chris Slade | | | 2009 | Encounter | MED CTR SLEEP | MD [address] | | | | | [place] [address] | [facility] | | | | | [place] | [place] [address] | | | | | [address] | [phone] | | | | | [phone] | | | +--------+ + + + [...]
--- OUTSIDE RECORDS SUMMARY | ~2019-10-18 | XMS | Encounter Summary ---
Demographics + + + | Address | [address] | | | [place] [address] | + + + | Home Phone | | + + + | Preferred Language | Unknown | + + + | Marital Status | Unmarried Domestic Partner | + + + | Hinduism Affiliation | Unknown | + + + | Race | or | + + + | Ethnic Group | Not or | + + + Author + + + | Author | [facility] | + + + | Organization | [facility] | + + + | Address | Unknown | + + + | Phone | Unavailable | + + + Support + + +---------+ + | Name | Relationship | Address | Phone | + + +---------+ + | Van Zarina | ECON | Unknown | | + + +---------+ + Care Team Providers + +------+ + | Care Director Of Video Analytics Name | Role | Phone | + [...] | | | | [address] | [place], [place] | | | | | [address] [facility] | [address] | | | | | Health and Healing, | [phone] | | | | | [facility] | | | | | | floor [place], [place] | | | | | | [address] | | | | | | [phone] | | | +--------+ + + + [...]
--- OUTSIDE RECORDS SUMMARY | ~2019-10-18 | XMS | Encounter Summary ---
Demographics + + + | Address | [address] | | | [place] [address] | + + + | Home Phone | | + + + | Preferred Language | Unknown | + + + | Marital Status | Unmarried Domestic Partner | + + + | Restoration Affiliation | Unknown | + + + | Race | or | + + + | Ethnic Group | Not or | + + + Author + + + | Author | [facility] | + + + | Organization | [facility] | + + + | Address | Unknown | + + + | Phone | Unavailable | + + + Support + + +---------+ + | Name | Relationship | Address | Phone | + + +---------+ + | Van Zarina | ECON | Unknown | | + + +---------+ + Care Team Providers + +------+ + | Care Material Hauler Name | Role | Phone | + +------+ + | Hood Sauceda MD | PCP | | + +------+ + Reason for Visit + + + | Reason | Comments | + + + | New patient | | | consultation | | + + + Other (Routine) +--------+--------+ + + + + | Status | Reason | Specialty | Diagnoses / | Referred By | Referred To | | | | | Procedures | Contact | Contact | +--------+--------+ + + + + | Closed | | Reproductive | | [facility] | | | | Endocrinology | | Epic Dept | [facility] | | | | /Infertility | | | [address] | | | | | | | [facility] | | | | | | | for Health | | | | | | | and Healing, | | | | | | | Building [address], | | | | | | | 10th Floor | | | | | | | [place], [place] | | | | | | | [address] | | | | | | | Phone: | | | | | | | [phone] | | | | | | | Fax: | | | | | | | [phone] | +--------+--------+ + + + + Encounter Details +--------+---------+ + + + | Date | Type | Department | Care Team | Description | +--------+---------+ + + + | 01/12/ | Office | University | Dee Dee Rojas MD | Recurrent | | 2014 | Visit | Fertility | [address] | loss without current | | | | Consultants at [facility] | [address] [place], | (Primary | | | | [address] | [place] [address] | Dx); Unspecified | | | | [facility] | [phone] | screening; | | | | and Healing, | | Congenital | | | | Building | | hypothyroidism | | | | Floor [place], [place] | | without goiter; PCOS | | | | [address] | | (polycystic ovarian | | | | [phone] | | syndrome) | +--------+---------+ + + + Social History + +-------+ [...] + + documented as of this encounter Last Filed Vital Signs + + + + + | Vital Sign | Reading | Time Taken | Comments | + + + + + | Blood Pressure | 120/71 | 01/12/2015 1:45 PM | | | | | PDT | | + + + + + | Pulse | 73 | 01/12/2015 1:45 PM | | | | | PDT | | + + + + + | Temperature | 36.8 C (98.3 F) | 01/12/2015 1:45 PM | | | | | PDT | | + + + + + | Respiratory Rate | 18 | 01/12/2015 1:45 PM | | | | | PDT | | + + + + + | Oxygen Saturation | - | - | | + + + + + | Inhaled Oxygen | - | - | | | Concentration | | | | + + + + + | Weight | 153.6 kg (338 lb 9.6 | 01/12/2015 1:45 PM | | | | oz) | PDT | | + + + + + | Height | 175.3 cm (5' 9") | 01/12/2015 1:45 PM | | | | | PDT | | + + + + + | Body Mass Index | 50 | 01/12/2015 1:45 PM | | | | | PDT | | + + + + + documented in this encounter Progress Notes Dee Dee Rojas MD - 01/12/2015 11:35 AM PDTInitial Visit: 01/12/2015 Subjective: 39 year old G 9P 1081 partnered woman with PCOS, hypothyroidism, HTN, and morbid obesity who is here to discuss fertility concerns. She has been attempting pregn kizzy for 1.5 years. Prior fertility evaluations include: 10+ cycles of Clomid 100 mg Day 3 to Day 7 over the past several years as well as one IUI c ycle Clomid 100 mg with HCG trigger and timed intercourse resulted in full term One cycle of Femara 5 mg Day 3 to Day 7, HMG 2 amps Day 8 to Day 11 Multiple Transvaginal Pelvic US in 2014 confirming follicle growth SA 10 mil per mL with 20% motility pre-wash NL pap 11/26/2014 HSG was normal prior to 2011 Hysteroscopy in 2007 showed no polyps POBHx: 1. age 26, SAB at 11 weeks. 2. SAB at 11 weeks. 3. SAB at 4 weeks. 4. SAB at 6 weeks. 5. SAB at 4 weeks. 6. SAB at 5 weeks. 7. SAB at 5 weeks. 8. SAB at 7 weeks. 9. live of healthy male, "Cecil," on 04/11/2012 via Cesarian section at 38 weeks-- baby was transverse. PGynHx: Menarche at age-- pt is unsure Cycles q 30 days, flow lasts 5-7 days which has been heavier since the of her son in 2011 (changes pads q 2 hours), endorses dysmenorrhea ("feels kind of like contractions") whi ch is moderately relieved with ibuprofen Pt was diagnosed with PCOS at age 22 and has been treated with long lasting Metformin PMHx: Hypothyroidism HTN PCOS Morbid obesity Gestational DM Insulin resistance Asthma PSHx: Colonoscopy which showed polyps Tonsillectomy Lap Band in 2008 at 315 lbs with 7 lb total weight loss FamHx: Mother has DM and HTN Two first cousins have history of Factor V and miscarriage ROS: Weight gain, even temperature. Denies hair thinning, hirsutism, galactorrhea, vasomotor sx. Normal BM. Current Medications: Metformin 750 mg twice daily, Atenolol 50 mg daily, Levothyroxine 50 m cg daily, Vitamin D3 2,000 units daily, Folic Acid 400 mcg daily, Flonase, and Fexofenadine 180 mg daily Allergies: Amoxicillin History: including Ovulatory, Tubal, Uterine, Cervical, Male factor. OVULATORY Cycle length - 30 days PCO symptoms - yes - diagnosed with PCOS at age 22 Anovulatory - no Thyroid symptoms - yes - diagnosed with hypothyroidism Prolactin - no Secondary amenorrhea - no TUBAL PID, GC, HPV - no Abnormal Pap - no Tubal surgery - no Ectopics - no Appendicitis - no Abdominal surgery - yes - Lap Band and Endometriosis symptoms - no UTERINE Anomaly history - no Surgery reports (H-scope L-scope) - no Asherman's history - no CERVICAL Cone biopsy - no MALE FACTOR Age:36 Paternity - no Surgery - no Trauma - no Medications: Proxeed plus Tobacco: no (no marijuana) Exposures: none-- wears mask at work ED: no Partner works as a diesel service journeyman. He periodically uses hot tubs/saunas. He is also borderline diabetic. ASSESSMENT: 1. Recurrent loss 2. Elevated BMI of 50 3. PCOS 4. Male factor-- 10 mil concentration and 20% motility 5. HTN 6. AMA PLAN: 1. Labs today including TSH, Thyroid Antibodies, Prolactin, Hgb A1C, Lupus Inhibitor, Type and Screen, Anticardiolipin, Factor V, Anti-B2 Glycoprotein, and MTHFR. 2. Recommended follow up with bariatric surgeon to plan for further weight loss, given the lap band only resulted in a 7-lb weight loss. Discussed goal of getting BMI below 45 for in- office egg retrieval with anesthesia. 3. We had an extensive discussion regarding the various etiologies of recurrent l oss, including uterine, endocrine, genetic, thrombophilia, autoimmune, and idiopathic. I mad e the following recommendations: - Uterine cavity assessment between cycle days 6-11 with a saline-infusion sonogram to rul e out cavitary pathology, will likely do this for pre-IVF screening - Serum testing for prolactin, lupus anticoagulant, anticardiolipin antibody, anti-B2 glyc oproten 1, Factor V Leiden, and thyroid peroxidase antibody - We discussed the option of checking parental karyotype on both partners to rule out diana nced translocation carrier status 4. Discussed having pt's partner complete FSH, estrogen, and testosterone panel then follow up with Urology for possible Clomid supplementation to boost sperm count. Advised to stop s auna/hot tub/steam room use. 5. While Leatha continues to lose weight and her follows up with urology, we discus sed possibly doing a Letrozole/IUI cycle. Femara 7.5 mg Day 3 to 7, MCS Day 13 or 14, HCG tr igger with IUI cycle pending partner's lab results and pt's weight loss. If not aft er 2-3 rounds and BMI <45 will regroup to discuss possible IVF/ICSI. 6. Encouraged pt to double Vitamin D3 dosage to 4,000 units for Vitamin D supplementation. 7. We discussed the age-related decline in ovarian reserve as well as a decline in oocyte q uality with increased frequency of chromosomal mutations which results in failure of normal fertilization, failure to implant, increased miscarriage, or aneuploid pregnancies. 8. Will need MFM consult. I am Oriana Kearney functioning as a scribe for Dr. Dee Dee Rojas. Oriana Kearney I have reviewed and verified the above scribed note of this patient's visit and made edits as appropriate. DEE DEE ROJAS MD I spent 60 minutes with the patient, over half of which was spent in counseling the patient regarding infertility, RPL documented in this encoun ter Plan of Treatment Not on filedocumented as of this encounter Results PROLACTIN, SERUM (01/12/2015 2:58 PM PDT) + + + + + + | Component | Value | Ref Range | Performed | Pathologist | | | | | At | Signature | + + + + + + | PROLACTIN | 7Comment: In , | 3 - 20 ng/mL | CHILD - | | | | Prolactin levels are | | [facility] - | | | | elevated above | | [place] | | | | non- levels: | | | | | | 4-fold during the first | | | | | | trimester 12-fold | | | | | | during the second | | | | | | trimester 20-fold | | | | | | during the third | | | | | | trimester | | | | + + + + + + + + | Specimen | + + | Blood - Blood | + + + + + + + | Performing | Address | City/State/Zipcode | Phone Number | | Organization | | | | + + + + + | [facility] | [address] | [place] [address] | | | [place] | | | | + + + + + FACTOR V GUADALUPE BLOOD (01/12/2015 2:58 PM PDT) + + + + + + | Component | Value | Ref Range | Performed | Pathologist | | | | | At | Signature | + + + + + + | FACTOR V | No Mutation | No Mutation | [facility] | | | ([facility] | | | DIAGNOSTIC | | | | | | | | | | | | LABORATORIE | | | | | | S | | + + + + + + + + | Specimen | + + | Blood - Blood | + + + + + | Narrative | Performed At | + + + | INTERPRETATION: The Factor V Leiden mutation analysis | [facility] | | shows that there is no mutation in either copy of the Factor V gene at | DI[facility]STIC | | codon 506. Please note that this assay only detects the Factor V | LABORATORIES | | R506Q point mutation (Factor V Leiden), and therefore a normal result | | | (in one or both alleles) does not rule out an abnormal Factor V | | | phenotype. These results suggest that this patient does not have | | | "Resistance to Activated Protein C." Other mutations responsible for | | | a hypercoagulable state cannot be ruled out. Thank you very much | | | for your referral. Please do not hesitate to contact us for | | | additional information as to the ramifications of this test result. | | | We look forward to assisting you again in the future. As per | | | your request, Factor V Leiden (R506Q) mutation analysis has been | | | completed. For this assay, a specific region of the Factor V gene | | | has been amplified by PCR and analyzed using a fluorescently labeled | | | sequence-specific probe. A fluorescent melting curve of the | | | hybridization kinetics of the sample and necessary controls has been | | | examined; the clinical interpretation is detailed above. In | | | population screening studies, approximately 3% of the [place] population | | | can be shown to be Factor V Leiden heterozygotes. References: | | | 1.) Stuart et al. N. Engl. J. Med(1994) 332:912-7. 2.) Yeimy et | | | tom. N. Engl. J Med(1993) 330:517-22. 3.) Marvin et al. Genetics in | | | Medicine(2001) 3:139:147. 4.) Nely Obrien & Ann. Am J. Clin | | | Path(2001) 115:439-47. This test was developed and its performance | | | characteristics determined by the [facility] | | | [facility]. It has not been cleared or approved by | | | the Food and Drug Administration. FDA approval is not required for | | | clinical use of this test, and therefore validation was done as | | | required under the requirements of the Clinical Laboratory Improvement | | | Act of 1988. The [facility] | | | Diagnostic Center is a fully licensed and/or accredited clinical | | | laboratory under CLIA, CAP, and the [facility]. Please note | | | that our lab now also offers a clinical diagnostic test to directly | | | detect a common mutation in the prothrombin gene that has been shown | | | to predispose to both elevated prothrombin levels and an increased | | | risk of venous thrombosis (Poort et al. Blood (1996) 88:0668-5957). | | | Should this patient be undergoing a hypercoagulable evaluation, a | | | prothrombin gene mutation analysis may be clinically indicated. | | | Reviewed and electronically signed by AUBREE JUAREZ MD,PhD | | | 01/20/2015 1:48 PM | | + + + + + + + + | Performing | Address | City/State/Zipcode | Phone Number | | Organization | | | | + + + + + | [facility] | [address] | [place] [address] | | | DIAGNOSTIC | [address] | | | | LABORATORIES | | | | + + + + + EMIL, BLOOD (01/12/2015 2:58 PM PDT) + + + + + + | Component | Value | Ref Range | Performed | Pathologist | | | | | At | Signature | + + + + + + | MTHFR | No Mutation | | [facility] | | | | | | DIAGNOSTIC | | | | | | | | | | | | LABORATORIE | | | | | | S | | + + + + + + + + | Specimen | + + | Blood - Blood | + + + + + | Narrative | Performed At | + + + | This case is amended to document that the molecular data has been | [facility] | | reviewed by Dr. Juarez. The diagnosis and other reported information | DIAGNOSTIC | | are unchanged. As per your request, MTHFR mutation analysis has | LABORATORIES | | been completed. For this assay, a specific region of the | | | methylenetetrahydrofolate reductase (MTHFR) gene has been amplified by | | | the polymerase chain reaction (PCR) and digested with the restriction | | | enzyme NlaIV. An NlaIV digest for the PCR product and controls has | | | been electrophoresed, the resulting fragments have been examined, and | | | the clinical interpretation is detailed above. INTERPRETATION: | | | The methylenetetrahydrofolate reductase (MTHFR) mutation analysis | | | shows that neither of the two alleles at nucleotide 677 of the MTHFR | | | gene (C677T) contains a mutation. As this assay only detects this | | | particular nucleotide substitution, a normal result (in one or both | | | alleles), does not rule out an abnormal MTHFR phenotype. As MTHFR | | | activity is required for efficient homocystine metabolism, MTHFR | | | mutations are a common cause of familial hyperhomocysteinema. | | | Hyperhomocysteinema is a well documented risk factor for both | | | arterial and venous thromboembolic vascular disease that may be | | | modulated by folic acid supplementation (1,4). The C677T mutation, | | | in particular creates a thermolabile MTHFR with reduced enzymatic | | | activity (2) that predisposes to hyperhomocysteinema. Homozygous | | | (but not heterozygous carriers of the C677T MTHFR defect may therefore | | | be at increased risk of vascular disease including coronary, | | | cerebral, peripheral, and/or venous vascular disease (3). The MTHFR | | | nucleotide C677T mutation is extremely prevalent. In a normal | | | healthy white population the distribution of MTHFR genotypes is | | | therefore: approximately 40% wild type, approximately 50% | | | heterozygotes, and approximately 10% homozygote. Elevated levels of | | | homocysteine have been found to be associated with homozygous | | | mutations at nucleotide C677T of the MTHFR gene (2,3). In | | | comparison, individuals either wild type or heterozygous for the C677T | | | MTHFR allele have not been found to have significant | | | hyperhomocysteinema. The vascular and/or thromboembolic risk | | | associated with a heterozygous MTHFR C667T mutation is therefore | | | likely to be small or negligible. It was previously hypothesized | | | that reduced enzyme activity of MTHFR led to mild hyperhomocysteinemia | | | which led to an increased risk for venous thromboembolism, coronary | | | heart disease, and recurrent loss. Recent meta-analyses | | | have disproven an association between hyperhomocysteinemia and risk | | | for coronary heart disease and between MTHFR polymorphism status and | | | risk for venous thromboembolism. There is growing evidence that | | | MTHFR polymorphism testing has minimal clinical utility and, therefore | | | should not be ordered as a part of a routine evaluation for | | | thrombophilia. Thank you very much for your referral. Please do | | | not hesitate to contact us for additional information as to the | | | ramifications of this test result. We look forward to assisting you | | | again in the future. References: 1.) DAREN Paris et al. ANNE MARIE | | | (1994) 274: 1866-6105. 2.) Leandro Anderson al. Nature Genetics (1994) | | | 10:111-113. 3.) bárbara Jay. Am.J.Hum.Genetics (1995) 58:35-41. | | | 4.) Sameera Parker. et al. N.Engl.J.Med. (1995) 334:759-762. 5.) | | | Jean-Paul. Molecular Diagnosis (1996) 2:61-68. 6.) Kailey, | | | Eric et al. Genetics in Medicine (2013) 15:2:153-156. This | | | test was developed and its performance characteristics determined by | | | the [facility]. | | | It has not been cleared or approved by the Food and Drug | | | Administration. FDA approval is not required for clinical use of | | | this test, and therefore validation was done as required under the | | | requirements of the Clinical Laboratory Improvement Act of 1988. The | | | [facility] is a | | | fully licensed and/or accredited clinical laboratory under CLIA, CAP, | | | and the [facility]. Reviewed and electronically signed by | | | AUBREE JUAREZ MD,PhD 02/16/2015 2:13 PM | | + + + + + + + + | Performing | Address | City/State/Zipcode | Phone Number | | Organization | | | | + + + + + | [facility] | [address] | [place] [address] | | | DIAGNOSTIC | [address] | | | | LABORATORIES | | | | + + + + + LUPUS INHIBITOR EVALUATION REFLEX TO APTT MIX (01/12/2015 2:58 PM PDT) + + + + + + | Component | Value | Ref Range | Performed | Pathologist | | | | | At | Signature | + + + + + + | INTERPRETAT | Negative for Lupus Like | Negative for | [facility] | | | ION (LUPI) | Inhibitor | Lupus Like | LABORATORY | | | | | Inhibitor | SERVICES, | | | | | | SPECIAL IMM | | | | | | + COAG | | + + + + + + | APTT | 27.2 | 26.0 - 36.0 sec | [facility] | | | PATIENT | | | LABORATORY | | | | | | SERVICES, | | | | | | SPECIAL IMM | | | | | | + COAG | | + + + + + + | HEXAGONAL | 1.3 | 0.0-<8.0 sec | [facility] | | | PL APTT | | | LABORATORY | | | | | | SERVICES, | | | | | | SPECIAL IMM | | | | | | + COAG | | + + + + + + | DVVT | 29.3 | 29.2 - 39.6 sec | [facility] | | | | | | LABORATORY | | | | | | SERVICES, | | | | | | SPECIAL IMM | | | | | | + COAG | | + + + + + + + + | Specimen | + + | Blood - Blood | + + + + + | Narrative | Performed At | + + + | Repeat testing of initial abnormal studies is recommended after | [facility] | | at least 12 weeks, since transient LA's (often associated with | LABORATORY | | infection or medication effect) are common and may not have the same | SERVICES, | | clinical implications or require the same treatment as chronic LA's of | SPECIAL IMM + | | extended duration. The Lupus Inhibitor panel does not include | [facility] | | serologic studies (anti-cardiolipin and anti-beta 2 glycoprotein 1) | | | which are also useful in evaluating anti-phospholipid syndrome (APS). | | | For comprehensive APS evaluation follow ISTH guidelines. | | | Standard heparin may interfere with APTT and APTT mixing studies in | | | any concentration. Standard heparin may interfere with the Hexagonal | | | PTT and DVVT if present in concentrations above 1.0 U/mL. Some low | | | molecular weight heparins may also affect the APTT and other tests. | | | Anti-thrombins such as Argatroban, Bivalirudin, and Dabigatran may | | | also affect the APTT and other tests. Coumadin may prolong DVVT test | | | results due to its effect on Factors II and X, but the DVV confirm | | | ratio (DVVC) will be normal in this situation. Prolonged DVVT with | | | an abnormal DVVC is indicative of a lupus inhibitor. DVVT | | | Reference Range change effective 2014 | | + + + + + + + + | Performing | Address | City/State/Zipcode | Phone Number | | Organization | | | | + + + + + | [facility] | [address] | [place] [address] | | | SPECIAL DERRE[facility] | [address] | | | | MIAH + NADIA | | | | + + + + + ANTICARDIOLIPIN IGG/M (01/12/2015 2:58 PM PDT) + +-------+ + + + | Component | Value | Ref Range | Performed | Pathologist | | | | | At | Signature | + +-------+ + + + | ANTICARDIOL | <4.4 | <=40.0 GPL-U/ml | [facility] | | | IPIN IGG | | | LABORATORY | | | | | | SERVICES, | | | | | | SPECIAL IMM | | | | | | + COAG | | + +-------+ + + + | ANTICARDIOL | 3.4 | <=40.0 MPL-U/ml | [facility] | | | IPIN IGM | | | LABORATORY | | | | | | SERVICES, | | | | | | SPECIAL IMM | | | | | | + COAG | | + +-------+ + + + + + | Specimen | + + | Blood - Blood | + + + + + | Narrative | Performed At | + + + | Test Unit Negative | [facility] | | Equivocal Positive Angélica Cardiolipin IgM MPL- U/ml <10 | LABORATORY | | 10-40 >40 Angélica Cardiolipin IgG GPL-U/ml | SERVICES, | | <10 10-40 >40 All positive results | SPECIAL IMM + | | should be retested on two or more occasions and at least 12 weeks | COAG | | apart to confirm persistence (J Thromb Haemost. 2006; 4:295-306). | | + + + + + + + + | Performing | Address | City/State/Zipcode | Phone Number | | Organization | | | | + + + + + | [facility] | [address] | [place] [address] | | | SERVICES, SPECIAL | [address] | | | | IMM + COAG | | | | + + + + + ANTI-B2 GLYCOPROTEIN 1 IGG/IGM (01/12/2015 2:58 PM PDT) + +-------+ + + + | Component | Value | Ref Range | Performed | Pathologist | | | | | At | Signature | + +-------+ + + + | ANTI-B2GPI | <3.8 | <=10.0 U/ml | [facility] | | | IGG | | | LABORATORY | | | | | | SERVICES, | | | | | | SPECIAL IMM | | | | | | + COAG | | + +-------+ + + + | ANTI-B2GP1 | <3.9 | <=5.6 U/ml | [facility] | | | IGM | | | LABORATORY | | | | | | SERVICES, | | | | | | SPECIAL IMM | | | | | | + COAG | | + +-------+ + + + + + | Specimen | + + | Blood - Blood | + + + + + | Narrative | Performed At | + + + | Test Unit Negative Equivocal | [facility] | | Positive Angélica B2-Glycoprotein I U/ml <7 7-10 | LABORATORY | | >10 An IgG and/or IgM result of greater than 10 U/mL on | SERVICES, | | at least two occasions and at least 12 weeks apart is suggestive of | SPECIAL IMM + | | antiphospholipid syndrome. Diagnosis should NOT be made solely on | COAG | | the basis of a single specimen. | | + + + + + + + + | Performing | Address | City/State/Zipcode | Phone Number | | Organization | | | | + + + + + | [facility] | [address] | [place] [address] | | | SERVICES, SPECIAL | [address] | | | | IMM + COAG | | | | + + + + + HEMOGLOBIN A1C, BLOOD (01/12/2015 2:58 PM PDT) + + + + + + | Component | Value | Ref Range | Performed | Pathologist | | | | | At | Signature | + + + + + + | HEMOGLOBIN | 5.4Comment: Hbg A1c | <5.7 % | [facility] | | | A1C | Interpretive | | LABORATORY | | | | Information: | | SERVICES, | | | | <5.7% - Normal | | SPECIAL IMM | | | | 5.7-6.4% - Consistent | | + COAG | | | | with pre-diabetes | | | | | | >6.4% - Consistent with | | | | | | diabetes | | | | + + + + + + + + | Specimen | + + | Blood - Blood | + + + + + + + | Performing | Address | City/State/Zipcode | Phone Number | | Organization | | | | + + + + + | [facility] | [address] | [place] [address] | | | SERVICES, SPECIAL | [address] | | | | IMM + COAG | | | | + + + + + THYROID PEROXIDASE AB, SERUM (01/12/2015 2:58 PM PDT) + + + + + + | Component | Value | Ref Range | Performed | Pathologist | | | | | At | Signature | + + + + + + | THYROID | 2.6Comment: Performed by | 0.0 - 9.0 IU/mL | [facility] | | | PEROXIDASE | [facility] | [address] | | | AB | [address], [facility] [place] | | [facility] | | | | [address] | | | | | | [phone] | | | | | | Fede mcelroy, | | | | | | , Lab. Director | | | | + + + + + + + + | Specimen | + + | Blood - Blood | + + + + + + + | Performing | Address | City/State/Zipcode | Phone Number | | Organization | | | | + + + + + | [facility] | [address] | [place], [place] | | | UNIV PTH - INT[facility] | | [address] | | + + + + + THYROGLOBULIN AB, SERUM (01/12/2015 2:58 PM PDT) + + + + + + | Component | Value | Ref Range | Performed | Pathologist | | | | | At | Signature | + + + + + + | THYROGLOBUL | <0.9Comment: | 0.0 - 4.0 IU/mL | [facility] | | | IN ANTIBODY | INTERPRETIVE | | REG UNIV | | | | INFORMATION: | | PTH - [facility] | | | | Thyroglobulin Antibody | | | | | | | | | | | | A | | | | | | value of 4.0 IU/mL or | | | | | | less indicates a | | | | | | negative result for | | | | | | thyroglobulin | | | | | | antibodies. The | | | | | | Thyroglobulin Antibody | | | | | | assay is being performed | | | | | | using the Gautam | | | | | | Andrew Access DxI | | | | | | method.Performed by [facility] | | | | | | [facility],[address] | | | | | | [address], [facility] [place] | | | | | | [address] | | | | | | [phone]. | | | | | | Fede mcelroy, | | | | | | MD Lab. Director | | | | + + + + + + + + | Specimen | + + | Blood - Blood | + + + + + + + | Performing | Address | City/State/Zipcode | Phone Number | | Organization | | | | + + + + + | [facility] | [address] | [place], [place] | | | UNIV PTH - [facility] | | [address] | | + + + + + TSH (01/12/2015 2:58 PM PDT) + +-------+ + + + | Component | Value | Ref Range | Performed | Pathologist | | | | | At | Signature | + +-------+ + + + | TSH | 1.92 | 0.39 - 4.17 | [facility] | | | | | mIU/L | LABORATORY | | | | | | SERVICES, | | | | | | CORE | | + +-------+ + + + + + | Specimen | + + | Blood - Blood | + + + + + | Narrative | Performed At | + + + | TSH reference ranges are influenced by a variety of environmental | [facility] | | influences, age, gender and ethnicity. The supplied reference limits | LABORATORY | | are based on published values utilizing a similar TSH assay, and | SERVICES, CORE | | should be interpreted with caution. | | + + + + + + + + | Performing | Address | City/State/Zipcode | Phone Number | | Organization | | | | + + + + + | [facility] | [address] | [place] [address] | | | SERVICES, CORE | [address] | | | + + + + + documented in this encounter Visit Diagnoses + + | Diagnosis | + + | Recurrent loss without current - Primary | + + | Unspecified screening | + + | Congenital hypothyroidism without goiter Congenital hypothyroidism | + + | PCOS (polycystic ovarian syndrome) Polycystic ovaries | + + documented in this encounter
--- OUTSIDE RECORDS SUMMARY | ~2019-10-18 | XMS | Encounter Summary ---
Demographics + + + | Address | [address] | | | [place] [address] | + + + | Home Phone | | + + + | Preferred Language | Unknown | + + + | Marital Status | Unmarried Domestic Partner | + + + | Jain Affiliation | Unknown | + + + | Race | or | + + + | Ethnic Group | Not or | + + + Author + + + | Author | [facility] | + + + | Organization | [facility] | + + + | Address | Unknown | + + + | Phone | Unavailable | + + + Support + + +---------+ + | Name | Relationship | Address | Phone | + + +---------+ + | Van Zarina | ECON | Unknown | | + + +---------+ + Care Team Providers + +------+ + | Care Radio Machinist Name | Role | Phone | + [...] + + | 06/04/ | Telephone | [place] | Dee Dee Martinez MD | Lab findings, | | 2015 | | Fertility | [address] | teaching, guidance, | | | | Consultants at [facility] | [address] [place], | and counseling | | | | [address] | [place] [address] | | | | | [facility] | [phone] | | | | | and Healing, | | | | | | | | | | | | [place], [place] | | | | | | [address] | | | | | | [phone] | | | +--------+ + + + [...]
--- OUTSIDE RECORDS SUMMARY | ~2019-10-18 | XMS | Encounter Summary ---
Demographics + + + | Address | [address] | | | [place] [address] | + + + | Home Phone | | + + + | Preferred Language | Unknown | + + + | Marital Status | Unknown | + + + | Scientology Affiliation | Unknown | + + + | Race | Unknown | + + + | Ethnic Group | Unknown | + + + Author + + + | Author | [facility] | | | and [place] | + + + | Organization | [facility] | | | and [place] | + + + | Address | Unknown | + + + | Phone | Unavailable | + + + Care Team Providers + +------+ + | Care Technical Support Representative Name | Role | Phone | + +------+ + PCP | Unavailable | + +------+ + Encounter Details +--------+ + + + + | Date | Type | Department | Care Team | Description | +--------+ + + + + | 02/16/ | Hospital | [facility] | | | | 1994 | Encounter | MED CTR GENERIC OP | | | | | | CONV DEPT [address] | | | | | | [place], | | | | | | [place] [address] | | | | | | [phone] | | | +--------+ + + + [...]
--- OUTSIDE RECORDS SUMMARY | ~2019-10-18 | XMS | Clinical Summary ---
Demographics + + + | Address | [address] | | | [place] [address] | + + + | Home Phone | | + + + | Preferred Language | Unknown | + + + | Marital Status | Unmarried Domestic Partner | + + + | Gnosticism Affiliation | Unknown | + + + | Race | or | + + + | Ethnic Group | Not or | + + + Author + + + | Author | [facility] | + + + | Organization | NON REVENUE LOCATIONS | + + + | Address | Unknown | + + + | Phone | Unavailable | + + + Support + + +---------+ + | Name | Relationship | Address | Phone | + + +---------+ + | Van Soweny | ECON | Unknown | | + + +---------+ + Care Team Providers + +------+ + | Care Sales Promotion Representative Name | Role | Phone | + +------+ + | Hood Sauceda MD | PCP | | + +------+ + Source Comments CECILY is fully live on both EpicCare Ambulatory and EpicCare InPatient.[facility] Allergies + + + + + + | Active Allergy | Reactions | Severity | Noted | Comments | | | | | Date | | + + + + + + | Amoxicillin | Rash | Medium | 01/13/20 | | | | | | 15 | | + + + + + + Medications + + + +---------+------+------+-------+ | Medication | Sig | Dispensed | Refills | Star | End | Statu | | | | | | t | Date | s | | | | | | Date | | | + + + +---------+------+------+-------+ | letrozole 2.5 mg | Take 3 tablets by | 15 | 0 | 07/2 | | Activ | | oral tablet | mouth once daily. | tablet | | 02/12 | | e | | | Administer on cycle | | | 15 | | | | | days 3-7 after a | | | | | | | | negative | | | | | | | | test | | | | | | + + + +---------+------+------+-------+ Active Problems Not on file Social History [...] | + + Last Filed Vital Signs + + + [...] | | + + + + + Plan of Treatment + + + + + | Health Maintenance | Due Date | Last Done | Comments | + + + + + | Pneumococcal | | | | | vaccination ( 3 | 3 | | | | - PCV13) | | | | + + + + + | Influenza (Flu) | | | | | vaccination (#1) | 9 | | | + + + + + Results Not on filefrom Last 3 Months Insurance + +--------+ +--------+ + +--------+ | Payer | Benefi | Subscriber | Effect | Phone | Address | Type | | | t Plan | ID | catherine | | | | | | / | | Dates | | | | | | Group | | | | | | + +--------+ +--------+ + +--------+ | [place] | OHP | [id number] | | [phone] | [address] | | | PLUS | | [phone] | id | | | OPEN | | esent | | [place], [place] | | | | CARD | | | | [phone] | | + +--------+ +--------+ + +--------+ + +--------+ +--------+ + + | Guarantor Name | Accoun | Relation to | Date | Phone | Billing Address | | | t Type | Patient | of | | | | | | | | | | + +--------+ +--------+ + + | Leatha Mcdonald | Person | Self | [birth year] | [address] | | | al/Fam | | 1974 | [address] | [place] | | | nando | | | 9 (Home) | [address] | + +--------+ +--------+ + + | Leatha Mcdonald | UFC | Self | [birth year] | [address] | | | Billin | | 1974 | | [place], [place] | | | g Use | | | 9 (Home) | [address] | | | Only | | | | | + +--------+ +--------+ + +
--- OUTSIDE RECORDS SUMMARY | ~2019-10-18 | XMS | Encounter Summary ---
Demographics + + + | Address | [address] | | | [place] [address] | + + + | Home Phone [...] + + + | Author | [facility] | + + + | Organization | [facility] | + + + | Address | Unknown | + + + | Phone | Unavailable | + + + Support + + +---------+ + | Name | Relationship | Address | Phone | + + +---------+ + | Van Zarina | ECON | Unknown | | + + +---------+ + Care Team Providers + +------+ + | Care News Production Assistant Name | Role | Phone | [...] + + | 01/28/ | Telephone | [place] | Dee Dee Martinez MD | Lab findings, | | 2015 | | Fertility | [address] | teaching, guidance, | | | | Consultants at [facility] | [address] [place], | and counseling ([place]) | | | | [address] | [place] [address] | | | | | [facility] | [phone] | | | | | and Healing, | | | | | | [facility] | | | | | | [place], [place] | | | | | | [address] | | | | | | [phone] | | | +--------+ + + + [...]
--- OUTSIDE RECORDS SUMMARY | ~2019-10-18 | XMS | Encounter Summary ---
Demographics + + + | Address | [address] | | | [place] [address] | + + + | Home Phone | | + + + | Preferred Language | Unknown | + + + | Marital Status | Unknown | + + + | Denominational Affiliation | Unknown | + + + | Race | Unknown | + + + | Ethnic Group | Unknown | + + + Author + + + | Author | [facility] | | | and [place] | + + + | Organization | [facility] | | | and [place] | + + + | Address | Unknown | + + + | Phone | Unavailable | + + + Care Team Providers + +------+ + | Care Beamster Name | Role | Phone | + +------+ + PCP | Unavailable | + +------+ + Encounter Details +--------+ + + + + | Date | Type | Department | Care Team | Description | +--------+ + + + + | 01/06/ | Hospital | [facility] | | | | 2004 | Encounter | MED CTR XRAY [address] | | | | | | [address] | | | | | | [place] [address] | | | | | | [phone] | | | +--------+ + + + [...]
--- OUTSIDE RECORDS SUMMARY | ~2019-10-18 | XMS | Encounter Summary ---
Demographics + + + | Address | [address] | | | [place] [address] | + + + | Home Phone | | + + + | Preferred Language | Unknown | + + + | Marital Status | Unknown | + + + | Jain Affiliation | Unknown | + + + | Race | Unknown | + + + | Ethnic Group | Unknown | + + + Author + + + | Author | [facility] | | | and [place] | + + + | Organization | [facility] | | | and [place] | + + + | Address | Unknown | + + + | Phone | Unavailable | + + + Care Team Providers + +------+ + | Care Dot Net Developer Name | Role | Phone | + +------+ + PCP | Unavailable | + +------+ + Encounter Details +--------+ + + + + | Date | Type | Department | Care Team | Description | +--------+ + + + + | 10/17/ | Hospital | [facility] | | | | 1996 | Encounter | MED CTR GENERIC OP | | | | | | CONV DEPT [address] | | | | | | [place], | | | | | | [place] [address] | | | | | | [phone] | | | +--------+ + + + [...]
--- OUTSIDE RECORDS SUMMARY | ~2019-10-18 | XMS | Encounter Summary ---
Demographics + + + | Address | [address] | | | [place] [address] | + + + | Home Phone | | + + + | Preferred Language | Unknown | + + + | Marital Status | Unknown | + + + | Episcopal Affiliation | Unknown | + + + | Race | Unknown | + + + | Ethnic Group | Unknown | + + + Author + + + | Author | [facility] | | | and [place] | + + + | Organization | [facility] | | | and [place] | + + + | Address | Unknown | + + + | Phone | Unavailable | + + + Care Team Providers + +------+ + | Care Mercerizer Machine Operator Name | Role | Phone | + +------+ + PCP | Unavailable | + +------+ + Encounter Details +--------+ + + + + | Date | Type | Department | Care Team | Description | +--------+ + + + + | 01/04/ | Hospital | [facility] | | | | 2006 | Encounter | MED CTR GENERIC OP | | | | | | CONV DEPT [address] | | | | | | [place], | | | | | | [place] [address] | | | | | | [phone] | | | +--------+ + + + [...]
--- OUTSIDE RECORDS SUMMARY | ~2019-10-18 | XMS | Encounter Summary ---
Demographics + + + | Address | [address] | | | [place] [address] | + + + | Home Phone | | + + + | Preferred Language | Unknown | + + + | Marital Status | Unknown | + + + | Caodaism Affiliation | Unknown | + + + | Race | Unknown | + + + | Ethnic Group | Unknown | + + + Author + + + | Author | [facility] | | | and [place] | + + + | Organization | [facility] | | | and [place] | + + + | Address | Unknown | + + + | Phone | Unavailable | + + + Care Team Providers + +------+ + | Care Inspector Clip On Sunglasses Name | Role | Phone | + +------+ + PCP | Unavailable | + +------+ + Encounter Details +--------+ + + + + | Date | Type | Department | Care Team | Description | +--------+ + + + + | 02/16/ | Hospital | [facility] | | | | 1994 | Encounter | MED CTR GENERIC OP | | | | | | CONV DEPT [address] | | | | | | [place], | | | | | | [place] [address] | | | | | | [phone] | | | +--------+ + + + [...]
--- OUTSIDE RECORDS SUMMARY | ~2019-10-18 | XMS | Encounter Summary ---
Demographics + + + | Address | [address] | | | [place] [address] | + + + | Home Phone | | + + + | Preferred Language | Unknown | + + + | Marital Status | Unknown | + + + | Tenriism Affiliation | Unknown | + + + | Race | Unknown | + + + | Ethnic Group | Unknown | + + + Author + + + | Author | [facility] | | | and [place] | + + + | Organization | [facility] | | | and [place] | + + + | Address | Unknown | + + + | Phone | Unavailable | + + + Care Team Providers + +------+ + | Care County Surveyor Name | Role | Phone | + +------+ + PCP | Unavailable | + +------+ + Encounter Details +--------+ + + + + | Date | Type | Department | Care Team | Description | +--------+ + + + + | 06/03/ | Hospital | [facility] | Sukhi Fermin | | | 2008 | Encounter | MED CTR LABORATORY | DO [address] | | | | | [address] [place] | [facility] | | | | | [place] | [place] [address] | | | | | [address] | [phone] | | | | | [phone] | | | +--------+ + + + [...]
--- OUTSIDE RECORDS SUMMARY | ~2019-10-18 | XMS | Encounter Summary ---
Demographics + + + | Address | [address] | | | [place] [address] | + + + | Home Phone | | + + + | Preferred Language | Unknown | + + + | Marital Status | Unmarried Domestic Partner | + + + | Jewish Affiliation | Unknown | + + + | Race | or | + + + | Ethnic Group | Not or | + + + Author + + + | Author | [facility] | + + + | Organization | [facility] | + + + | Address | Unknown | + + + | Phone | Unavailable | + + + Support + + +---------+ + | Name | Relationship | Address | Phone | + + +---------+ + | Van Zarina | ECON | Unknown | | + + +---------+ + Care Team Providers + +------+ + | Care Press Pipe Inspector Name | Role | Phone | + [...] | | | Encounter | [address] | | | | | | for | [address] | | | | | | consultation | [address] | | | | | | | Rd | | | | | | Pre-concepti | [place], [place] | | | | | | on | [address] | | | | | | counseling | Phone: | | | | | | Procedures | [phone] | | | | | | CONSULT TO | Fax: | | | | | | PERINATOLOGY | [phone] | | +--------+--------+ + + + + [...] | | | | | Consultants at [facility] | [address] [place], | | | | | [address] | [place] [address] | | | | | [facility] | [phone] | | | | | and Healing, | | | | | | | | | | | | Floor [place], [place] | | | | | | [address] | | | | | | [phone] | | | +--------+ + + + [...]
--- OUTSIDE RECORDS SUMMARY | ~2019-10-18 | XMS | Encounter Summary ---
Demographics + + + | Address | [address] | | | [place] [address] | + + + | Home Phone | | + + + | Preferred Language | Unknown | + + + | Marital Status | Unknown | + + + | Mormon Affiliation | Unknown | + + + | Race | Unknown | + + + | Ethnic Group | Unknown | + + + Author + + + | Author | [facility] | | | and [place] | + + + | Organization | [facility] | | | and [place] | + + + | Address | Unknown | + + + | Phone | Unavailable | + + + Care Team Providers + +------+ + | Care Artificial Foliage Arranger Name | Role | Phone | + +------+ + PCP | Unavailable | + +------+ + Encounter Details +--------+ + + + + | Date | Type | Department | Care Team | Description | +--------+ + + + + | 01/11/ | Hospital | [facility] | | | | 2016 | Encounter | [facility] | | | | | | [address] | | | | | | [address] | | | | | | [place] | | | | | | [address] | | | | | | [phone] | | | +--------+ + + + [...]
--- OUTSIDE RECORDS SUMMARY | ~2019-10-18 | XMS | Encounter Summary ---
Demographics + + + | Address | [address] | | | [place] [address] | + + + | Home Phone | | + + + | Preferred Language | Unknown | + + + | Marital Status | Unknown | + + + | Church Affiliation | Unknown | + + + | Race | Unknown | + + + | Ethnic Group | Unknown | + + + Author + + + | Author | [facility] | | | and [place] | + + + | Organization | [facility] | | | and [place] | + + + | Address | Unknown | + + + | Phone | Unavailable | + + + Care Team Providers + +------+ + | Care Brick Burner Head Name | Role | Phone | + +------+ + PCP | Unavailable | + +------+ + Encounter Details +--------+ + + + + | Date | Type | Department | Care Team | Description | +--------+ + + + + | 01/02/ | Hospital | [facility] | | | | 1996 | Encounter | MED CTR SLEEP | | | | | | CENTER [address] | | | | | | [place] | | | | | | [address] | | | | | | [phone] | | | +--------+ + + + [...]
--- OUTSIDE RECORDS SUMMARY | ~2019-10-18 | XMS | Encounter Summary ---
Demographics + + + | Address | [address] | | | [place] [address] | + + + | Home Phone | | + + + | Preferred Language | Unknown | + + + | Marital Status | Unmarried Domestic Partner | + + + | Faith Affiliation | Unknown | + + + | Race | or | + + + | Ethnic Group | Not or | + + + Author + + + | Author | [facility] | + + + | Organization | [facility] | + + + | Address | Unknown | + + + | Phone | Unavailable | + + + Support + + +---------+ + | Name | Relationship | Address | Phone | + + +---------+ + | Van Zarina | ECON | Unknown | | + + +---------+ + Care Team Providers + +------+ + | Care Front Desk Person Name | Role | Phone | + +------+ + | Hodo Sauceda MD | PCP | | + +------+ + Encounter Details +--------+------+ + + + | Date | Type | Department | Care Team | Description | +--------+------+ + + + | 01/12/ | Lab | Laboratory at [facility] | | Recurrent | | 2014 | | [address] | | loss without current | | | | [facility] | ; | | | | and Healing, | | Congenital | | | | Building [address] | | hypothyroidism | | | | [place], [place] | | without goiter; PCOS | | | | [phone] | | (polycystic ovarian | | | | [phone] | | syndrome); | | | | | | Unspecified | | | | | | screening | +--------+------+ + + + Social History + +-------+ [...] | + +--------+ + + + | MTHFR, BLOOD | Routin | 01/12/2015 | Recurrent | Results for this | | | e | 2:58 PM | loss | procedure are in the | | | | PDT | without current | results section. | | | | | | | + +--------+ + + + | FACTOR V (5) LEIDEN | Routin | 01/12/2015 | Recurrent | Results for this | | BLOOD | e | 2:58 PM | loss | procedure are in the | | | | PDT | without current | results section. | | | | | | | + +--------+ + + + | THYROGLOBULIN AB, | Routin | 01/12/2015 | Recurrent | Results for this | | SERUM | e | 2:58 PM | loss | procedure are in the | | | | PDT | without current | results section. | | | | | | | | | | | Congenital | | | | | | hypothyroidism | | | | | | without goiter | | + +--------+ + + + | THYROID PEROXIDASE | Routin | 01/12/2015 | Recurrent | Results for this | | AB, SERUM | e | 2:58 PM | loss | procedure are in the | | | | PDT | without current | results section. | | | | | | | | | | | Congenital | | | | | | hypothyroidism | | | | | | without goiter | | + +--------+ + + + | LUPUS INHIBITOR | Routin | 01/12/2015 | Recurrent | Results for this | | EVALUATION WITH | e | 2:58 PM | loss | procedure are in the | | REFLEXES | | PDT | without current | results section. | | | | | | | + +--------+ + + + | ANTICARDIOLIPIN | Routin | 01/12/2015 | Recurrent | Results for this | | IGG/M | e | 2:58 PM | loss | procedure are in the | | | | PDT | without current | results section. | | | | | | | + +--------+ + + + | ANTIBODY SCREEN | Routin | 01/12/2015 | Unspecified | Results for this | | | e | 2:58 PM | screening | procedure are in the | | | | PDT | | results section. | + +--------+ + + + | TYPE AND SCREEN | Routin | 01/12/2015 | Unspecified | Results for this | | | e | 2:58 PM | screening | procedure are in the | | | | PDT | | results section. | + +--------+ + + + | ABO & RH TYPE | Routin | 01/12/2015 | Unspecified | Results for this | | | e | 2:58 PM | screening | procedure are in the | | | | PDT | | results section. | + +--------+ + + + | PROLACTIN | Routin | 01/12/2015 | Recurrent | Results for this | | | e | 2:58 PM | loss | procedure are in the | | | | PDT | without current | results section. | | | | | | | + +--------+ + + + | TSH | Routin | 01/12/2015 | Recurrent | Results for this | | | e | 2:58 PM | loss | procedure are in the | | | | PDT | without current | results section. | | | | | | | | | | | Congenital | | | | | | hypothyroidism | | | | | | without goiter | | + +--------+ + + + | HEMOGLOBIN A1C, | Routin | 01/12/2015 | PCOS (polycystic | Results for this | | BLOOD | e | 2:58 PM | ovarian syndrome) | procedure are in the | | | | PDT | | results section. | + +--------+ + + + | ANTI-B2 GLYCOPROTEIN | Routin | 01/12/2015 | Recurrent | Results for this | | 1 GM | e | 2:58 PM | loss | procedure are in the | | | | PDT | without current | results section. | | | | | | | + +--------+ + + + documented in this encounter Results ANTIBODY SCREEN (01/12/2015 2:58 PM PDT) + + + + + + | Component | Value | Ref Range | Performed | Pathologist | | | | | At | Signature | + + + + + + | Antibody | Negative | | [facility] | | | Screen | | | LABORATORY | | | | | | SERVICES, | | | | | | TRANSFUSION | | | | | | MEDICINE | | + + + + + + + + | Specimen | + + | Blood - Blood | + + + + + + + | Performing | Address | City/State/Zipcode | Phone Number | | Organization | | | | + + + + + | [facility] | [address] | [place] [address] | | | SERVICES, | [address] | | | | TRANSFUSION MEDICINE | | | | + + + + + ABO & RH TYPE (01/12/2015 2:58 PM PDT) + + + + + + | Component | Value | Ref Range | Performed | Pathologist | | | | | At | Signature | + + + + + + | ABO Group | O | | [facility] | | | | | | LABORATORY | | | | | | SERVICES, | | | | | | TRANSFUSION | | | | | | MEDICINE | | + + + + + + | Rh Type | Positive | | [facility] | | | | | | LABORATORY | | | | | | SERVICES, | | | | | | TRANSFUSION | | | | | | MEDICINE | | + + + + + + + + | Specimen | + + | Blood - Blood | + + + + + + + | Performing | Address | City/State/Zipcode | Phone Number | | Organization | | | | + + + + + | [facility] | [address] | [place] [address] | | | SERVICES, | [address] | | | | TRANSFUSION MEDICINE | | | | + + + + + PROLACTIN, SERUM (01/12/2015 2:58 PM PDT) + [...] | | | elevated above | | [place] | | | | non- levels: | [...] | + + + + + | [facility] - | [address] | [place] [address] | | | [place] | | | | + + + + + FACTOR V GUADALUPE BLOOD (01/12/2015 2:58 PM PDT) + + + + + + | Component | Value | Ref Range | Performed | Pathologist | | | | | At | Signature | + + + + + + | FACTOR V | No Mutation | No Mutation | [facility] | | | (5) LEIDEN | | | DIAGNOSTIC | | | [...] The Factor V Leiden mutation analysis | [facility] | | shows that there is no [...] N. Engl. J. Med(1994) 332:912-7. 2.) Yeimy jernigan | | | tom. N. Engl. J Med(1993) 330:517-22. 3.) Marvin et al. Genetics in | | | Medicine(2001) 3:139:147. 4.) Nely Obrien & Ann. Am J. Clin | | | Path(2001) 115:439-47. This test was developed and its performance | | | characteristics determined by the [facility] | | | [facility]. It has not been cleared or approved by | | | the Food and Drug Administration. FDA approval is not required for | | | clinical use of this test, and therefore validation was done as | | | required under the requirements of the Clinical Laboratory Improvement | | | Act of 1988. The [facility] | | | Diagnostic Center is a fully licensed and/or accredited clinical | | | laboratory under CLIA, CAP, and the State [facility]. Please note | | | that our lab now also offers a clinical diagnostic test to directly | | | detect a common mutation in the prothrombin gene that has been shown | | | to predispose to both elevated prothrombin levels and an increased | | | risk of venous thrombosis (Tarat et al. Blood (1996) 88:4360-3864). | | | Should this patient be [...] + + + | [facility] | [address] | [place] [address] | | | DIAGNOSTIC | [address] [...] | MTHFR | No Mutation | | [facility] | | | | | | DIAGNOSTIC [...] that the molecular data has been | [facility] | | reviewed by Dr. Juarez. The [...] ANNE MARIE | | | (1994) 274: 6159-1028. 2.) Leandro Anderson al. Nature Genetics (1994) | | | 10:111-113. 3.) Pierre et al. Am.J.Hum.Genetics (1995) 58:35-41. | | | 4.) Amelie Parker et al. N.Engl.J.Med. (1995) 334:759-762. 5.) | | | Jean-Paul. Molecular Diagnosis (1996) 2:61-68. 6.) Kailey, | | | Eric et al. Genetics in Medicine (2013) 15:2:153-156. This | | | test was developed and its performance characteristics determined by | | | the [facility]. | | | It has not been cleared or approved by the Food and Drug | | | Administration. FDA approval is not required for clinical use of | | | this test, and therefore validation was done as required under the | | | requirements of the Clinical Laboratory Improvement Act of 1988. The | | | [facility] is a | | | fully licensed and/or accredited clinical laboratory under CLIA, CAP, | | | and the [facility]. Reviewed and electronically signed by | | | AUBREE JUAREZ MD,PhD 02/16/2015 2:13 PM | | + + + + + + + + | Performing | Address | City/State/Zipcode | Phone Number | | Organization | | | | + + + + + | [facility] | [address] | [place] [address] | | | DIAGNOSTIC | [address] [...] | + + + + + | [facility] | [address] | [place] [address] | | | SERVICES, SPECIAL | PARK [...] | + + + + + | [facility] | [address] | [place] [address] | | | SERVICES, SPECIAL | [address]ANE[address] [...] | + + + + + | [facility] | [address] | [place] [address] | | | SERVICES, SPECIAL | JANELL [...] | + + + + + | [email or web address] | [address] | [place] [address] | | | SERVICES, SPECIAL | PARK [...] REG UNIV | | | AB | Santhosh Durant, [facility] | | PTH - INTFC | | | | [address] | | | | | | [phone]. | | | | | | Fede mcelroy, | | | | | | Yovany HUFF. Director | | | | + + + + + + + + | Specimen | + + | Blood - Blood | + + + + + + + | Performing | Address | City/State/Zipcode | Phone Number | | Organization | | | | + + + + + | [facility] | [address] | [place], [place] | | | UNIV PTH - INTFC | | [address] | | + + + + + [...] | | | | | method.Performed by [facility] | | | | | | [facility],[address] | | | | | | [address] Dur[address], [facility],[place] | | | | | | [address] | | | | | | [phone]. | | | | | | Fede [...] [facility] | [address] | [place], [place] | | | UNIV PTH - INTFC | | [address] | | + + + + + [...] + + + + + | [facility] | [address] | [place] [address] | | | SERVICES, CORE | [address] | | | + + + + + documented in this encounter Visit Diagnoses + + | Diagnosis | + + | Recurrent loss without current | + + | Congenital hypothyroidism without goiter Congenital hypothyroidism | + + | PCOS (polycystic ovarian syndrome) Polycystic ovaries | + + | Unspecified screening | + + documented in this encounter
--- OUTSIDE RECORDS SUMMARY | ~2019-10-18 | XMS | Encounter Summary ---
Demographics + + + | Address | [address] | | | [place] [address] | + + + | Home Phone | | + + + | Preferred Language | Unknown | + + + | Marital Status | Unknown | + + + | Confucianist Affiliation | Unknown | + + + | Race | Unknown | + + + | Ethnic Group | Unknown | + + + Author + + + | Author | [facility] | | | and [place] | + + + | Organization | [facility] | | | and [place] | + + + | Address | Unknown | + + + | Phone | Unavailable | + + + Care Team Providers + +------+ + | Care Rehabilitation Specialist Name | Role | Phone | + +------+ + PCP | Unavailable | + +------+ + Encounter Details +--------+ + + + + | Date | Type | Department | Care Team | Description | +--------+ + + + + | 04/09/ | Hospital | [facility] | | | | 2008 | Encounter | MED CTR GENERIC OP | | | | | | CONV DEPT [address] | | | | | | [place], | | | | | | [place] [address] | | | | | | [phone] | | | +--------+ + + + [...]
--- OUTSIDE RECORDS SUMMARY | ~2019-10-18 | XMS | Encounter Summary ---
Demographics + + + | Address | [address] | | | [place] [address] | + + + | Home Phone | | + + + | Preferred Language | Unknown | + + + | Marital Status | Unmarried Domestic Partner | + + + | Congregational Affiliation | Unknown | + + + | Race | or | + + + | Ethnic Group | Not or | + + + Author + + + | Author | [facility] | + + + | Organization | [facility] | + + + | Address | Unknown | + + + | Phone | Unavailable | + + + Support + + +---------+ + | Name | Relationship | Address | Phone | + + +---------+ + | Van Zarina | ECON | Unknown | | + + +---------+ + Care Team Providers + +------+ + | Care Regional Sales Engineer Name | Role | Phone | + +------+ + PCP | Unavailable | + +------+ + Encounter Details +--------+ + + + + | Date | Type | Department | Care Team | Description | +--------+ + + + + | 03/02/ | Documentati | Neurophysiology | Jeferson Walton MD | | | 2006 | on-ECX | EEG at [facility] [address] | [address] | | | | | [address] | [place], [place] | | | | | [employer] | [address] | | | | | [address] | [phone] | | | | | [place], [place] | | | | | | [address] | | | | | | [phone] | | | +--------+ + + + [...] Leatha Mcdonald Date of : 1975 | [facility] | | Date of Test: [...] [facility] | [address] | [place], [place] | | | [place], POINT OF CARE | [address] | [address] | | | TESTS | | | | + + + + + | [facility] | [address] | [place], [place] | | | TESTS | [address] | [address] | | + + + + + documented in this encounter Visit Diagnoses Not on filedocumented in this encounter"
--- OUTSIDE RECORDS SUMMARY | ~2019-10-18 | XMS | Clinical Summary ---
Demographics + + + | Address | [address] | | | [place] [address] | + + + | Home Phone | | + + + | Preferred Language | Unknown | + + + | Marital Status | Unmarried Domestic Partner | + + + | Presybeterian Affiliation [...] Team Providers + +------+ + | Care Building Specialist Name | Role | Phone | + +------+ + | Hood Sauceda MD | PCP | | + +------+ + Source Comments [facility] is fully live on both EpicCare Ambulatory and EpicCare InPatient.[facility] Allergies + + + + + [...] PLUS | | [address] | 6 | [id number] | id | | | OPEN | | esent | | [place], [place] | | | | CARD | | | | [id number] | | + +--------+ +--------+ + +--------+ + +--------+ +--------+ + + | Guarantor Name | Accoun | Relation to | Date | Phone | Billing Address | | | t Type | Patient | of | | | | | | | | | | + +--------+ +--------+ + + | Leatha Mcdonald | Person | Self | [birth year] | [address] | | | al/Fam | | 1974 | [address] | [place] | | | nando | | | 9 (Home) | [address] | + +--------+ +--------+ + + | Leatha Mcdonald | UFC | Self | [birth year] | [address] | | | Billin | | 1974 | | [place], [place] | | | g Use | | | 9 (Home) | [address] | | | Only | | | | | + +--------+ +--------+ + +
--- OUTSIDE RECORDS SUMMARY | ~2019-10-18 | XMS | Encounter Summary ---
Demographics + + + | Address | [address] | | | [place] [address] | + + + | Home Phone | | + + + | Preferred Language | Unknown | + + + | Marital Status | Unmarried Domestic Partner | + + + | Jew Affiliation | Unknown | + + + | Race | or | + + + | Ethnic Group | Not or | + + + Author + + + | Author | [facility] | + + + | Organization | [facility] | + + + | Address | Unknown | + + + | Phone | Unavailable | + + + Support + + +---------+ + | Name | Relationship | Address | Phone | + + +---------+ + | Van Zarina | ECON | Unknown | | + + +---------+ + Care Team Providers + +------+ + | Care Fixed Capital Clerk Name | Role | Phone | + [...] | | | | | | | [facility] | | | | | | | for Health | | | | | | | and Healing, | | | | | | | Building [address], | | | | | | | 10th Floor | | | | | | | [place], [place] | | | | | | | [address] | | | | | | | Phone: | | | | | | | [phone] | | | | | | | Fax: | | | | | | | [phone] | +--------+--------+ + + + + Encounter Details +--------+---------+ + + + | Date | Type | Department | Care Team | Description | +--------+---------+ + + + | 01/12/ | Office | University | Dee Dee Rojas MD | Recurrent | | 2014 | Visit | Fertility | [address] | loss without current | | | | [facility]ants at [facility] | [address] [place], | (Primary | | | | [address] | [place] [address] | Dx); Unspecified | | | | [facility] | [phone] | screening; | | | | and Healing, | | Congenital | | | | Building | | hypothyroidism | | | | Floor [place], [place] | | without goiter; PCOS | | | | [address] | | (polycystic ovarian | | | | [phone] | | syndrome) | +--------+---------+ + + [...] work ED: no 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 He periodically uses hot tubs/saunas. He is [...] | | | elevated above | | [place] | | | | non- levels: | [...] | + + + + + | [facility] | [address] | [place] [address] | | | [place] | | | | + + + [...] | | | characteristics determined by the [facility] | | | [facility] Diagnostic Center. It has not been cleared or approved by | | | the Food and Drug Administration. FDA approval is not required for | | | clinical use of this test, and therefore validation was done as | | | required under the requirements of the Clinical Laboratory Improvement | | | Act of 1988. The [facility] | | | Diagnostic Center is a fully licensed and/or accredited clinical | | | laboratory under CLIA, CAP, and the [facility]. Please note | | | that our lab now also offers a clinical diagnostic test to directly | | | detect a common mutation in the prothrombin gene that has been shown | | | to predispose to both elevated prothrombin levels and an increased | | | risk of venous thrombosis (Poort et al. Blood (1996) 88:6430-2193). | | | Should this patient be [...] + + + | [facility] | [address] | [place] [address] | | | DIAGNOSTIC | [address] [...] | MTHFR | No Mutation | | [facility] | | | | | | DIAGNOSTIC [...] that the molecular data has been | [facility] | | reviewed by Dr. Juarez. The [...] ANNE MARIE | | | (1994) 274: 4810-2716. 2.) Leandro Anderson al. Nature Genetics (1994) [...] characteristics determined by | | | the [facility]. | | | It has not been cleared or approved by the Food and Drug | | | Administration. FDA approval is not required for clinical use of | | | this test, and therefore validation was done as required under the | | | requirements of the Clinical Laboratory Improvement Act of 1988. The | | | [facility] is a | | | fully licensed and/or accredited clinical laboratory under CLIA, CAP, | | | and the [facility]. Reviewed and electronically signed by | | | AUBREE JUAREZ MD,PhD 02/16/2015 2:13 PM | | + + + + + + + + | Performing | Address | City/State/Zipcode | Phone Number | | Organization | | | | + + + + + | [facility] | [address] | [place] [address] | | | DIAGNOSTIC | [address] [...] | + + + + + | [facility] | [address] | [place] [address] | | | SPECIAL DERRELL | JANELL [...] [facility] | [address] | [place] [address] | | | SERVICES, SPECIAL | PARK [...] | + + + + + | [facility] | [address] | [place] [address] | | | SERVICES, SPECIAL | JANELL [...] | + + + + + | [facility] | [address] | [place] [address] | | | SERVICES, SPECIAL | PARK [...] | | | AB | Adriel Cartagena, [facility] | | PTH - INTFC | | | | [address] | | | | | | [phone]. | | | | | | Fede [...] [facility] | [address] | [place], [place] | | | UNIV PTH - INTFC | | [address] | | + + + + + [...] | | | | | method.Performed by [facility] | | | | | | [facility],[address] | | | | | | Adriel [address]agena, [facility] | | | | | | [address] | | | | | | [phone].Document Security Systemsuplab. | | | | | | Fede [...] [facility] | [address] | [place], [place] | | | UNIV PTH - INTFC | | [address] | | + + + + + [...] | + + + + + | [facility] | [address] | [place] [address] | | | SERVICES, CORE | PARK [...]
--- OUTSIDE RECORDS SUMMARY | ~2019-10-18 | XMS | Encounter Summary ---
Demographics + + + | Address | [address] | | | [place] [address] | + + + | Home Phone | | + + + | Preferred Language | Unknown | + + + | Marital Status | Unmarried Domestic Partner | + + + | Hoahaoism Affiliation | Unknown | + + + | Race | or | + + + | Ethnic Group | Not or | + + + Author + + + | Author | [facility] | + + + | Organization | [facility] | + + + | Address | Unknown | + + + | Phone | Unavailable | + + + Support + + +---------+ + | Name | Relationship | Address | Phone | + + +---------+ + | Van Zarina | ECON | Unknown | | + + +---------+ + Care Team Providers + +------+ + | Care Legal Billing Specialist Name | Role | Phone | + +------+ + | Hood Sauceda MD | PCP | | + +------+ + Encounter Details +--------+ + + + + | Date | Type | Department | Care Team | Description | +--------+ + + + + | 01/16/ | [place] | [place] | Kellee Hamlin, RN | RE: Lab order | | 2014 | Encounter | Fertility | [address] | | | | | [facility] | [address] [place], | | | | | [address] | [place] [address] | | | | | [facility] | | | | | | and Healing, | | | | | | Building | | | | | | Floor [place], [place] | | | | | | [address] | | | | | | [phone] | | | +--------+ + + + [...]
--- OUTSIDE RECORDS SUMMARY | ~2019-10-18 | XMS | Encounter Summary ---
Demographics + + + | Address | [address] | | | [place] [address] | + + + | Home Phone [...] Author + + + | Author | [facility] | + + + | Organization | [facility] | + + + | Address | Unknown | + + + | Phone | Unavailable | + + + Support + + +---------+ + | Name | Relationship | Address | Phone | + + +---------+ + | Van Zarina | ECON | Unknown | | + + +---------+ + Care Team Providers + +------+ + | Care Gripper Installer Name | Role | Phone | + [...] | | hypothyroidism | | | | [place], [place] | | without goiter; PCOS | | | | [phone] | | (polycystic ovarian | | | | [phone] | | syndrome); | | | | [...] [facility] | [address] | [place] [address] | | | SERVICES, | [address] [...] [facility] | [address] | [place] [address] | | | SERVICES, | [address] [...] | | | elevated above | | [place] | | | | non- levels: | [...] + | CHILD - AIRPORT - | [address] | [place] [address] | | | [place] | | | | + + + [...] The Factor V Leiden mutation analysis | [facility] | | shows that there [...] | | | characteristics determined by the [facility] | | | Molecular Diagnostic Center. It has not been cleared or approved by | | | the Food and Drug Administration. FDA approval is not required for | | | clinical use of this test, and therefore validation was done as | | | required under the requirements of the Clinical Laboratory Improvement | | | Act of 1988. The [facility] Molecular | | | Diagnostic Center is a fully licensed and/or accredited clinical | | | laboratory under CLIA, CAP, and the [facility]. Please note | | | that our lab now also offers a clinical diagnostic test to directly | | | detect a common mutation in the prothrombin gene that has been shown | | | to predispose to both elevated prothrombin levels and an increased | | | risk of venous thrombosis (Tarat et al. Blood (1996) 88:9952-5986). | | | Should this patient be [...] + + + | [facility] | [address] | [place] [address] | | | DIAGNOSTIC | [address] [...] ANNE MARIE | | | (1994) 274: 5199-0949. 2.) Leanrdo Anderson al. [employer] (1994) | | [...] characteristics determined by | | | the [facility]. | | | It has not been cleared or approved by the Food and Drug | | | Administration. FDA approval is not required for clinical use of | | | this test, and therefore validation was done as required under the | | | requirements of the Clinical Laboratory Improvement Act of 1988. The | | | [facility] is a | | | fully licensed and/or accredited clinical laboratory under CLIA, CAP, | | | and the [facility]. Reviewed and electronically signed by | | | AUBREE JUAREZ MD,PhD 02/16/2015 2:13 PM | | + + + + + + + + | Performing | Address | City/State/Zipcode | Phone Number | | Organization | | | | + + + + + | [facility] | [address] | [place] [address] | | | DIAGNOSTIC | [address] [...] | + + + + + | [facility] | [address] | [place] [address] | | | SERVICES, SPECIAL | PARK [...] | + + + + + | [facility] | [address] | [place] [address] | | | SERVICES, SPECIAL | JANELL [...] | + + + + + | [facility] | [address] | [place] [address] | | | SERVICES, SPECIAL | JANELL [...] | + + + + + | [facility] | [address] | [place] [address] | | | SERVICES, SPECIAL | PARK [...] | | | AB | Santhosh Durant, [facility] | | PTH - [facility] | | | | [address] | | | | | | [phone]. | | | | | | Fede [...] [facility] | [address] | [place], [place] | | | UNIV PTH - INT[facility] | | [address] | | + + + + + [...] [place] | | | | | | [facility],[address] | | | | | | [address] Dur[address], [facility] | | | | | | [address] | | | | | | [phone]. | | | | | | Fede [...] [facility] | [address] | [place], [place] | | | UNIV PTH - INT[facility] | | [address] | | + + + + + [...] + + + | [facility] | [address] | [place] [address] | | | SERVICES, CORE | JANELL [...]
[~2019-10-18 19:58] MED LIST changes: +GLUCOPHAGE1000 MG PO; +KAPSPARGO SPRIN25 MG PO; +LEVOTHYROXINE75 MCG PO; +LEVOXYL75 MCG PO; +METFORMIN HCL1000 MG PO
[2019-10-18] MEDS ORDERED: HYDROCODON-ACE1 EA10 PO (20:19)
[2019-10-18] MEDS ORDERED: IBUPROFEN600 MG PO (20:19)
[2019-10-18] MEDS ORDERED: NIFEDIPINE ER30 M1 PO (20:20)
[2019-10-18] MEDS ORDERED: IRON325 M1 PO (20:20)
== END 2019-10-18 20:48 | disposition home or self-care (01) ==
LOC: ED 19:58
DX: T81.89XA Other complications of procedures, not elsewhere classified, initial encounter (principal); E03.9 Hypothyroidism, unspecified; I10 Essential (primary) hypertension; Z88.1 Allergy status to other antibiotic agents; Z79.899 Other long term (current) drug therapy
CPT/HCPCS: 99283

== ENCOUNTER 2021-03-28 12:28 | Emergency (ER) | payer OTHER ==
[~2021-03-28] VITALS: Ht 175.3 cm; Wt 144.7 kg
[~2021-03-28 12:28] MED LIST changes: +HYDROCODON-ACE1 EA10 PO; +IBUPROFEN600 MG PO; +IRON325 M1 PO; +NIFEDIPINE ER30 M1 PO
--- OUTSIDE RECORDS SUMMARY | 2021-03-28 12:30 | XMS ---
PreManage Notification: LOWELL CORTEZ [employer] Events No recent Security Events currently on file [facility] There are no care providers on record at this time. Victor[facility] has no Care Guidelines for this patient. [place] VISIT COUNT (12 MO.) 1 SWATI Burks TOTAL 1 NOTE: Visits indicate total known visits. ED/C VISIT TRACKING (12 MO.) 03/28/2021 12:28 SWATI Grider [place] TYPE: Emergency COMPLAINT: - RIGHT ANKLE PAIN/ INJ INPATIENT VISIT TRACKING (12 MO.) No inpatient visits to display in this time frame [email or web address]
[2021-03-28] MEDS ORDERED: PHENTERMINE H37.5 M1 PO (12:58)
[2021-03-28] MEDS ORDERED: TENORMIN50 MG PO (13:00)
[2021-03-28] MEDS ORDERED: HYDROCODON-ACE1 EA10 PO (13:34)
[2021-03-28] MEDS ORDERED: CRUTCH1 EACH MISC (13:34)
== END 2021-03-28 14:00 | disposition home or self-care (01) ==
LOC: ED 12:28
DX: S93.401A Sprain of unspecified ligament of right ankle, initial encounter (principal); S93.402A Sprain of unspecified ligament of left ankle, initial encounter; E03.9 Hypothyroidism, unspecified; I10 Essential (primary) hypertension; X50.1XXA Overexertion from prolonged static or awkward postures, initial encounter; Z88.6 Allergy status to analgesic agent; Z88.0 Allergy status to penicillin; Z88.1 Allergy status to other antibiotic agents; Z79.84 Long term (current) use of oral hypoglycemic drugs; Z79.899 Other long term (current) drug therapy
CPT/HCPCS: 73610; 99283

== ENCOUNTER 2022-02-09 07:25 | Day surgery (SDC) | payer OTHER ==
[~2022-02-09] VITALS: Ht 175.3 cm; Wt 150.4 kg
[~2022-02-09 07:25] MED LIST changes: +CRUTCH1 EACH MISC; +FLONASE ALLERG9.9 ML NAS; +PHENTERMINE H37.5 M1 PO; +SYMBICORT 80-10.2 GM INH; +TENORMIN50 MG PO; +VALTREX1000 MG PO
--- NOTE | 2022-02-09 11:08 | NUR ---
02/09/22 1108 Claudia Jane 1104 PATIENT ARRIVES TO PACU RESTING WITH EYES CLOSED, OPENS EYES WITH VERBAL STIMULI. RESP EVEN AND UNLABORED, MASK AT 6 LITERS, TURNED OFF ON ARRIVAL TO PACU. REPORTS PAIN 4/10, AND A LITTLE NAUSEA.
--- NOTE | 2022-02-11 08:24 | OR ---
[facility] [address] [place], [place] [address] Signed DATE OF OPERATION: 02/09/2022 SURGEON: Roberta Griffin MD PREOPERATIVE DIAGNOSES: Menorrhagia, morbid obesity. POSTOPERATIVE DIAGNOSES: Menorrhagia, morbid obesity with multiple endometrial polyps. PROCEDURE: Hysteroscopy, resection of polyps. ANESTHESIA: MAC. ESTIMATED BLOOD LOSS: Minimal. DRAINS: None. INDICATIONS AND FINDINGS: The patient is a 47-year-old female, who has been having very prolonged and heavy bleeding, which has been fairly regular. Endometrial biopsy has been unsuccessful. Ultrasound showed a fairly thickened endometrium. At the time of surgery, exam under anesthesia revealed a top normal size uterus. The uterus did sound to 11 cm. There were multiple polyps within the cavity. DESCRIPTION OF PROCEDURE: The patient was prepped and draped in the dorsal lithotomy position. Initially, the Otoe-Neck speculum was placed but the cervix really could not be visualized. The large open-sided speculum was placed and the cervix was visualized and grasped on the anterior lip with a single-tooth tenaculum. The cavity was sounded to 11 cm. The endocervical canal was then dilated to a #9 dilator. Following this, the MyoSure device was placed. The speculum was then removed from around the instruments. The uterus was evaluated and the MyoSure Lite was introduced. The polyps were removed and the cavity was clean at the conclusion. The tenaculum was then removed. There was some ongoing bleeding from the tenaculum site, which required pressure to control bleeding. All sponge and needle counts were correct. She tolerated the procedure well and was taken to the recovery Electronically Signed By: ROBERTA GRIFFIN MD 02/11/22 0824 PATIENT NAME: LOWELL CORTEZ OPERATIVE REPORT DATE OF : 79 REPORT #: [id number] PHYSICIAN: ROBERTA GRIFFIN MD PCP: [facility] REPORT IS CONFIDENTIAL AND NOT TO BE RELEASED WITHOUT AUTHORIZATION [address] [address] Signed room in good condition. MD MEGAN Benz/OSWALDO /[id number] cc: [facility] Copies: ~ Electronically Signed By: ROBERTA GRIFFIN MD 02/11/22 0824 PATIENT NAME: LOWELL CORTEZ OPERATIVE REPORT DATE OF : 79 REPORT #: [id number] PHYSICIAN: ROBERTA GRIFFIN MD PCP: [facility] REPORT IS CONFIDENTIAL AND NOT TO BE RELEASED WITHOUT AUTHORIZATION
--- NOTE | 2022-02-11 12:23 | PATH ---
[facility] [address] [place], [place] [address] Signed SPECIMEN(S): A EMC AND POLYPS SPECIMEN SOURCE: A. EMC AND POLYPS CLINICAL HISTORY: Menorrhagia FINAL PATHOLOGIC DIAGNOSIS: Endometrium, curettage and polypectomy: - Proliferative phase endometrium and benign endometrial polyps; no hyperplasia or neoplasia identified. - Incidental placental implantation site nodule. BRP:paulo:C2NR MICROSCOPIC EXAMINATION: Histologic sections of all submitted blocks are examined by light microscopy. These findings, together with the gross examination, support the pathologic diagnosis. GROSS DESCRIPTION: The specimen, labeled "NA, A," and designated on the requisition "EMC polyps," is received in formalin and consists of a suction bag containing multiple fisher-white to brown, rubbery tissue fragments, 2.7 x 2.6 x 0.9 cm in aggregate. The specimen is submitted in toto in 2 cassettes (A1-A-2). Note: All of the formalin had leaked out of the container into the specimen bag prior to reaching the gross room. AI (under the direct supervision of a pathologist) The Gross Description was prepared using a voice recognition system. The report was reviewed for accuracy; however, sound-alike word errors, addition and/or deletions may occur. If there is any question about this report, please contact Client Services. PERFORMING LABORATORY: The technical component was performed by [email or web address], [address] [place] [id number] (CLIA# [id number]). [email or web address] [address] [address] (CLIA# [id number]). PATIENT NAME: LOWELL CORTEZ PATHOLOGY DATE OF : 79 REPORT #: [id number] PHYSICIAN: [facility] PCP: [facility] REPORT IS CONFIDENTIAL AND NOT TO BE RELEASED WITHOUT AUTHORIZATION [address] [place] [address] Signed Diagnostician: Dennis Garrett MD Pathologist Electronically Signed 02/11/2022 Copies: ~ PATIENT NAME: LOWELL CORTEZ PATHOLOGY DATE OF : 79 REPORT #: [id number] PHYSICIAN: [facility] PCP: [facility] REPORT IS CONFIDENTIAL AND NOT TO BE RELEASED WITHOUT AUTHORIZATION
== END 2022-02-09 11:40 | disposition home or self-care (01) ==
LOC: DS 07:25
PROVIDERS: ATTEND Obstetrics & Gynecology
PROC: 0UB98ZX Excision of Uterus, Via Natural or Artificial Opening Endoscopic, Diagnostic (ICD-10-PCS; principal; 2022-02-09 11:30)
DX: N92.0 Excessive and frequent menstruation with regular cycle (principal); N84.0 Polyp of corpus uteri; N85.8 Other specified noninflammatory disorders of uterus; E66.01 Morbid (severe) obesity due to excess calories; I10 Essential (primary) hypertension; E03.9 Hypothyroidism, unspecified; Z68.42 Body mass index [BMI] 45.0-49.9, adult; Z88.0 Allergy status to penicillin; Z88.8 Allergy status to other drugs, medicaments and biological substances
CPT/HCPCS: J0131; J1100; J1644; J1885; J2001; J2250; J2405; J2704; J2765; J3010; J7121

== ENCOUNTER 2022-10-25 07:17 | Day surgery (SDC) | payer OTHER ==
[~2022-10-25] VITALS: Ht 175.3 cm; Wt 147.9 kg
[~2022-10-25 07:17] MED LIST changes: +CALCIUM 600+D31 EACH PO; +CAMILA0.35 MG PO; +HYDROCHLOROTH12.5 MG PO; +IMITREX50 MG PO; +LIPITOR20 MG PO; +LISINOPRIL10 MG PO; +OMEPRAZOLE20 MG PO; +VITAMIN B-121000 MC3 PO; +VITAMIN C500 M5 PO
[2022-10-25 07:39] VITALS: BP 159/73
--- NOTE | 2022-10-25 08:44 | NUR ---
CONNECTED WITH PT BEFORE RN STARTED PREP. PT ALERT, ORIENTED AND HAS HAD A SCOPE PREVIOUS. ELLIE MACEDO IN TO BEGIN PREP, GAVE BLESSING AND WILL FOLLOW.
--- NOTE | 2022-10-25 09:06 | NUR ---
10/25/22 0906 Raf,Poppy 0901 PT ARRIVED TO PACU ON 3L VIA NC, PT WAKES TO VERBAL STIMULI AND DENIES CONCERNS. PT EASILY FALLS BACK TO SLEEP AND O2 TURNED OFF.
[2022-10-25 09:29] VITALS: BP 146/71
--- NOTE | 2022-10-25 09:50 | OR ---
[facility] [address] [place], [place] [address] Signed DATE OF OPERATION: 10/25/2022 SURGEON: Elsie Evans MD PREOPERATIVE DIAGNOSES: 1. Personal history of colonic polyps in 2008 at age 33. 2. Maternal grandmother, mother and maternal cousin all with colonic polyps. 3. Irritable bowel syndrome with constipation and diarrhea. 4. Internal and external hemorrhoids. POSTOPERATIVE DIAGNOSES: 1. 5 mm polyp at 10 cm in rectum. 2. 6 mm polyp at 90 cm in transverse colon. 3. 4 mm polyp at 70 cm in the left colon. 4. 4 mm polyp at 45 cm in the left colon. 5. Minimal internal hemorrhoids. 6. Moderate external hemorrhoids. PROCEDURE: Colonoscopy with hot biopsy. ESTIMATED BLOOD LOSS: None. INDICATIONS: Lowell is a 47-year-old female, who underwent her 1st colonoscopy in 2008 at the age of 33 in [place], [place]. She had polyps removed at that time. She was asked to follow up in 5 years. I helped her in 2013 at the age of 38. She had a 4 mm tubular adenomatous polyp removed. Again, we asked her to follow up in 5 years. She did well with Versed and fentanyl. We know her maternal grandmother, mother and maternal cousin all had colonic polyps removed. Lowell describes irritable bowel syndrome with alternating constipation and diarrhea. She has longstanding internal and external hemorrhoids. Her last child was born about three years ago. She told me the external hemorrhoids do bother her sometimes. She had delayed her followup colonoscopy because she underwent infertility treatment to have her 3rd child. She presents now with no additional lower GI complaints. I gave her a booklet in the office on colonoscopy. She recalls the nature of the test. There is risk including, but not limited to gas bloating, crampy abdominal pain, bleeding, perforation requiring surgery, and missed diagnosis. We also reviewed the need for IV conscious sedation. She had expressed understanding and wished to proceed. Electronically Signed By: ELSIE EVANS MD 10/25/22 0950 PATIENT NAME: LOWELL CORTEZ OPERATIVE REPORT DATE OF : 79 REPORT #: [id number] PHYSICIAN: ELSIE EVANS MD PCP: [facility] REPORT IS CONFIDENTIAL AND NOT TO BE RELEASED WITHOUT AUTHORIZATION [facility] [address] [place], [place] [address] Signed PROCEDURE NOTE: Lowell was taken into our endoscopy suite and placed in the left lateral decubitus position. She was given a total of 12 mg of Versed and 200 mcg of fentanyl to cover the case. A digital rectal exam was performed and she does have moderate sized circumferential external hemorrhoids. She had good sphincter tone. There were no masses. The adult colonoscope was introduced and advanced all around into the cecum under direct visualization of the camera. It took a little extra sedation in order to get the camera directly into the cecum. Her prep was good as always. We could easily see the appendiceal orifice and the ileocecal valve. The scope was then slowly withdrawn. We took pictures throughout for photodocumentation. The above-mentioned polyps were easily removed with the help of hot biopsy forceps. There were no diverticula. Once in the rectum, the scope was retroflexed and she has minimal internal hemorrhoid columns. After this, the gas was suctioned out and the colonoscope removed. Lowell tolerated the procedure quite well. RECOMMENDATIONS: I will see Lowell back in my office in 7 to 14 days to review her results. It looks like she will stay on the five year plan. Elsie Evans MD ALB/MODL /[id number] cc: [facility] Elsie Evans MD Copies: ELSIE EVANS MD ~ Electronically Signed By: ELSIE EVANS MD 10/25/22 0950 PATIENT NAME: LOWELL CORTEZ OPERATIVE REPORT DATE OF : 79 REPORT #: [id number] PHYSICIAN: ELSIE EVANS MD PCP: [facility] REPORT IS CONFIDENTIAL AND NOT TO BE RELEASED WITHOUT AUTHORIZATION
== END 2022-10-25 09:40 | disposition home or self-care (01) ==
LOC: DS 07:17 → OPS 07:17 → DS 08:15 → OPS 08:15
PROVIDERS: ATTEND Colon & Rectal Surgery
DX: D12.4 Benign neoplasm of descending colon (principal); D12.3 Benign neoplasm of transverse colon; K62.1 Rectal polyp; K64.8 Other hemorrhoids; K64.4 Residual hemorrhoidal skin tags; Z86.010 Personal history of colon polyps; Z83.71 Family history of colonic polyps; I10 Essential (primary) hypertension; E03.9 Hypothyroidism, unspecified; E11.9 Type 2 diabetes mellitus without complications; E78.00 Pure hypercholesterolemia, unspecified; E66.01 Morbid (severe) obesity due to excess calories; J45.909 Unspecified asthma, uncomplicated; E78.5 Hyperlipidemia, unspecified; K21.9 Gastro-esophageal reflux disease without esophagitis; Z88.0 Allergy status to penicillin; Z88.8 Allergy status to other drugs, medicaments and biological substances; Z88.6 Allergy status to analgesic agent; Z79.890 Hormone replacement therapy; Z79.899 Other long term (current) drug therapy
CPT/HCPCS: 84703; 88305; 99153; G0500; J2250; J3010; J7121

== ENCOUNTER 2023-03-11 08:34 | Emergency (ER) | payer OTHER ==
[~2023-03-11] VITALS: Ht 175.3 cm; Wt 147.9 kg
[2023-03-11] MEDS ORDERED: DOXYCYCLINE HY100 MG PO (09:17)
[2023-03-11] MEDS ORDERED: HYDROCODON-ACE1 EA10 PO (09:17)
[2023-03-11 09:26] VITALS: BP 144/90
== END 2023-03-11 09:25 | disposition home or self-care (01) ==
LOC: ED 08:34
DX: N76.4 Abscess of vulva (principal); Z88.0 Allergy status to penicillin; Z88.8 Allergy status to other drugs, medicaments and biological substances
CPT/HCPCS: 56405; 99283-25